=== PATIENT | female | born 1950 | race Caucasian/White ===

== ENCOUNTER → 2020-10-28 02:48 | Outpatient (CLI) | payer MEDICARE, SELFPAY ==
[2020-10-28 19:43] LABS: SARS-CoV-2 RNA PCR Negative
== END ==
PROVIDERS: PCP Internal Medicine; Visit Provider Internal Medicine Gastroenterology
DX: Z01.812 Encounter for preprocedural laboratory examination (principal); Z20.822 Contact with and (suspected) exposure to COVID-19
CPT/HCPCS: C9803; U0003; U0005

== ENCOUNTER 2020-10-31 00:15 | Day surgery (SDC) | payer MEDICARE, SELFPAY ==
[2020-10-19 12:46] VITALS: BMI 41.4
[2020-10-31 06:24] VITALS: BP 153/92; PULSE 95; RESP 17; TEMP 36.5; O2SAT 100; BMI 44.8
[2020-10-31] MEDS: LACTATED RINGERS 1,000 ML 150 ML IV CONT (06:36)
--- NOTE | 2020-10-31 07:14 | WPDANESEPPF ---
Anes - Initial Pre Proc Eval Procedure: Operation Date: 10/31/20 07:30 Proposed Procedures p Screening Colonoscopy - Luisito Holland MD Date/Time: 10/31/20 07:14 Surgeon: Luisito Holland MD Pre Op Diagnosis: neoplasm screening, family hx colon ca Patient Data Age: 70 Gender: F Height: 5 ft 5 in Weight: 122.1 kg Last Vital Signs Temp 97.7 F 10/31/20 06:24 Pulse 95 10/31/20 06:24 Resp 17 10/31/20 06:24 BP 153/92 H 10/31/20 06:24 Pulse Ox 100 10/31/20 06:24 Allergies Allergy/AdvReac Type Severity Reaction Status Date / Time codeine AdvReac Intermediate Nausea Verified 10/31/20 06:23 Home Medications Medication Instructions Recorded Confirmed Type duloxetine 60 mg capsule,delayed 60 mg PO DAILY #90 cap 05/29/20 10/31/20 Rx release pravastatin 80 mg tablet 80 mg PO DAILY #90 tablet 06/29/20 10/31/20 Rx losartan 50 mg tablet 50 mg PO DAILY #90 tablet 07/31/20 10/31/20 Rx diclofenac sodium 75 mg PO BID 10/19/20 10/31/20 History omeprazole 40 mg PO DAILY PRN 10/19/20 10/31/20 History Patient hx anesthesia problems: none Family hx anesthesia problems: none PMFSH Past Medical History Medical History (Updated 06/29/20 @ 13:56 by Yessi Sampson CMA) WALT-inhibitor cough Benign essential hypertension Body mass index (BMI) 40.0-44.9, adult Colon cancer screening DJD (degenerative joint disease), multiple sites Elevated glucose Encounter for gynecological examination Encounter for Medicare annual wellness exam Encounter to establish care FHx: colon cancer First degree AV block History of kidney stones Hx of breast cancer Hyperlipidemia Hypothyroidism (acquired) Lichen sclerosus On watermelon harvesting supervisor drug therapy LUIS on CPAP Retinal hole of left eye Surgical History Surgical History Hx of bilateral mastectomy Family History Family History Mother Family history of rheumatoid arthritis Grandparent Family history of respiratory disorder Diabetes mellitus Acute myocardial infarction Sibling Carcinoma of colon Father Family history of renal failure Social History Social History Smoking status: Never smoker Alcohol intake: current Drinks per week: 10 Alcohol use details: WINE Substance use: never Living arrangements: alone Spiritual care concerns: No Anes - Eval Final PreProcedure Day of Procedure 10/31/20 07:14 Patient weight: morbidly obese Heart: regular rate and rhythm Lungs: clear to auscultation Airway: Mallampati scale class III Neurological: alert and oriented Last oral intake: >/= 8 hours ASA classification: IV Emergent: no Anesthetic plan: proceed Anesthesia type and monitoring: general GIVS and standard monitoring Informed Consent: The patient's anesthetic plan and its attendant risks and benefits were discussed with the patient/family/POA. Questions were solicited and answers provided to the satisfaction of the patient/family/POA.
--- NOTE | 2020-10-31 07:14 | PM.HPGS ---
History of Present Illness History of Present Illness Consent: Risks, benefits, and alternatives have been discussed and questions answered. Patient agrees to proceed with procedure. Chief complaint: neoplasm screening, family hx colon ca Narrative: Disha Nguyen is a 70 year old female referred for colon cancer screening she has a family history of colon cancer Review of Systems Review of Systems: All systems reviewed & are unremarkable except as noted in HPI and below PMFSH Past Medical History Medical History WALT-inhibitor cough Benign essential hypertension Body mass index (BMI) 40.0-44.9, adult Colon cancer screening DJD (degenerative joint disease), multiple sites Elevated glucose Encounter for gynecological examination Encounter for Medicare annual wellness exam Encounter to establish care FHx: colon cancer First degree AV block History of kidney stones Hx of breast cancer Hyperlipidemia Hypothyroidism (acquired) Lichen sclerosus On terminal superintendent drug therapy LUIS on CPAP Retinal hole of left eye Surgical History Surgical History Hx of bilateral mastectomy Family History Family History Mother Family history of rheumatoid arthritis Grandparent Family history of respiratory disorder Diabetes mellitus Acute myocardial infarction Sibling Carcinoma of colon Father Family history of renal failure Social History Social History Smoking status: Never smoker Alcohol intake: current Drinks per week: 10 Alcohol use details: WINE Substance use: never Living arrangements: alone Spiritual care concerns: No Meds Home Medications and Allergies Home Medications Medication Instructions Recorded Confirmed Type duloxetine 60 mg capsule,delayed 60 mg PO DAILY #90 cap 05/29/20 10/31/20 Rx release pravastatin 80 mg tablet 80 mg PO DAILY #90 tablet 06/29/20 10/31/20 Rx losartan 50 mg tablet 50 mg PO DAILY #90 tablet 07/31/20 10/31/20 Rx diclofenac sodium 75 mg PO BID 10/19/20 10/31/20 History omeprazole 40 mg PO DAILY PRN 10/19/20 10/31/20 History Allergies Allergy/AdvReac Type Severity Reaction Status Date / Time codeine AdvReac Intermediate Nausea Verified 10/31/20 06:23 Vital Signs Vital Signs - 24 hr 10/31/20 06:24 Temperature 36.5 C Pulse Rate 95 Respiratory Rate 17 Blood Pressure 153/92 H Pulse Oximetry 100 Exam Const: General: alert Orientation/consciousness: patient oriented x3 Resp: Auscultation: clear to auscultation bilaterally Cardio: Rhythm: regular rhythm GI: GI Palp: Yes Soft to palpation and No Tenderness to palpation present (GI) Neuro: General: patient oriented x3 Assessment and Plan Assessment and plan (1) Colon cancer screening: Code(s): Z12.11 - Encounter for screening for malignant neoplasm of colon Status: Acute Assessment and Plan: Colonoscopy with possible biopsy or polypectomy or cautery or injection of substances.
[2020-10-31 07:50] VITALS: BP 107/55; PULSE 88; RESP 21; O2SAT 97
[2020-10-31 08:00] VITALS: BP 124/71; PULSE 82; RESP 21; O2SAT 99
[2020-10-31 08:10] VITALS: BP 131/71; PULSE 80; RESP 24; O2SAT 100
== END 2020-10-31 08:20 | disposition home or self-care (01) ==
PROVIDERS: PCP Internal Medicine; Visit Provider Internal Medicine Gastroenterology
PROC: 0DJD8ZZ Inspection of Lower Intestinal Tract, Via Natural or Artificial Opening Endoscopic (ICD-10-PCS; CPT 45378; principal; 2020-10-31 07:30)
DX: Z12.11 Encounter for screening for malignant neoplasm of colon (principal); K57.30 Diverticulosis of large intestine without perforation or abscess without bleeding; D12.5 Benign neoplasm of sigmoid colon; Z80.0 Family history of malignant neoplasm of digestive organs; I10 Essential (primary) hypertension; E78.5 Hyperlipidemia, unspecified; I44.0 Atrioventricular block, first degree; E03.9 Hypothyroidism, unspecified; G47.33 Obstructive sleep apnea (adult) (pediatric); Z85.3 Personal history of malignant neoplasm of breast; M89.49 Other hypertrophic osteoarthropathy, multiple sites; E66.01 Morbid (severe) obesity due to excess calories; Z68.41 Body mass index [BMI] 40.0-44.9, adult
CPT/HCPCS: 45385; 88305; C9803; J2704; J7120; U0003; U0005

== ENCOUNTER 2021-01-24 13:06 | Emergency (ER) | payer MEDICARE, SELFPAY ==
--- NOTE | ~2021-01-24 | XR_ITS ---
EXAMINATION: XR facial bones min 3V EXAM DATE: 01/24/2021 13:40 INDICATION: fall pain to left cheek, swelling. Initial encounter. TECHNIQUE: Frontal, Garcia, lateral, submentovertex projections of the facial bones. There is no pr ior study for comparison. FINDINGS: There is soft tissue swelling over the left cheek. There are no acute fractures identified. Orbits appear intact. No appreciable sinus opacity. IMPRESSION: No facial fracture suspected. Reviewed, dictated and finalized at location A.
--- NOTE | ~2021-01-24 | XR_ITS ---
XR wrist RT w scaphoid DATE: 01/24/2021 13:39 INDICATION: Fall. Right wrist pain, swelling TECHNIQUE: 4 views COMPARISON: None FINDINGS: There is an impacted distal radial metaphyseal fracture with 4 mm dorsal displacement and a pproximately 23 degrees apex anterior angulation with associated dorsal inclination of the distal rad ial articular surface. Radiocarpal alignment is preserved. No other fracture or dislocation is evident. IMPRESSION: Impacted distal radial fracture with 4 mm dorsal displacement, 23 degrees apex anterior a ngulation and associated dorsal inclination of distal radial articular surface Reviewed, dictated and finalized at location B. IMPRESSION: Impacted distal radial fracture with 4 mm dorsal displacement, 23 d egrees apex anterior angulation and associated dorsal inclination of distal rad ial articular surface
[2021-01-24 13:15] VITALS: BP 189/87; PULSE 116; RESP 16; TEMP 36.3; O2SAT 98
--- NOTE | 2021-01-24 14:00 | ED.FALL ---
HPI - Fall General Chief Complaint: Fall Stated Complaint: fall/injured face/r wrist Time Seen by Provider: 01/24/21 13:29 Source: patient, family and RN notes reviewed Mode of arrival: ambulatory Limitations: no limitations History of Present Illness HPI Narrative: Patient presents today complaining of right wrist injury and a left cheek injury after tripping and falling over her cat just prior to arrival. Denies loss of consciousness. Patient is not on any blood thinners. Denies headache, dizziness, nausea or vomiting, vision changes, neck pain. Reports tingling in her fourth and fifth finger of the right hand. She currently rates her pain 8/10 and has tried no [id number] treatment prior to arrival. MD complaint: fall Related Data Home Medications Medication Instructions Recorded Confirmed diclofenac sodium 75 mg PO BID 10/19/20 11/10/20 omeprazole 40 mg PO DAILY PRN 10/19/20 11/10/20 Allergies Allergy/AdvReac Type Severity Reaction Status Date / Time codeine AdvReac Intermediate Nausea Verified 01/24/21 15:23 Review of Systems Review of Systems: Narrative: CONSTITUTIONAL: Denies body aches, fever, chills, or sweats. EYES: Denies visual changes, redness, or discharge. ENT: Denies rhinorrhea, congestion, sore throat, or otalgia. CARDIOVASCULAR: Denies chest pain, palpitations, or edema. RESPIRATORY: Denies cough or dyspnea. GASTROINTESTINAL: Denies abdominal pain, nausea, vomiting, or diarrhea. GENITOURINARY: Denies dysuria or hematuria. SKIN: Denies rash, itching. + Swelling to left cheek MUSCULOSKELETAL: Denies back pain,or myalgia.+ Right wrist injury NEUROLOGIC: Denies headache, numbness, or weakness. + Tingling to right fourth and fifth finger PSYCH: Denies depression or anxiety. [facility] Past Medical History Medical History WALT-inhibitor cough Benign essential hypertension Body mass index (BMI) 40.0-44.9, adult Body mass index (BMI) 45.0-49.9, adult Colon cancer screening DJD (degenerative joint disease), multiple sites Elevated glucose Encounter for gynecological examination Encounter for Medicare annual wellness exam Encounter for routine adult health examination without abnormal findings Encounter to establish care Facial pain Fall FHx: colon cancer First degree AV block History of kidney stones Hx of breast cancer Hyperlipidemia Hypothyroidism (acquired) Lichen sclerosus Neck pain On group home drug therapy LUIS on CPAP Retinal hole of left eye Surgical History Surgical History Hx of bilateral mastectomy Family History Family History Mother Family history of rheumatoid arthritis Grandparent Family history of respiratory disorder Diabetes mellitus Acute myocardial infarction Sibling Carcinoma of colon Father Family history of renal failure Social History Social History Smoking status: Never smoker Alcohol intake: current Drinks per week: 10 Alcohol use details: WINE Substance use: never Spiritual care concerns: No Comments At time of signature, I have reviewed and agree with nursing past medical, surgical, social and family history unless otherwise noted. Please see nursing chart for further information. There is no relevant family history pertinent to the presenting complaint Exam Narrative: Exam Narrative: GENERAL: Well-appearing, well-nourished, and in no acute distress. HEAD: Normocephalic. + Contusion to the left cheek with ecchymosis and edema. No crepitus noted. EYES: EOMI. PERRL. No nystagmus. No redness or drainage. Conjunctivae normal. ENT: Mucous membranes pink and moist. No pain to palpation of the orbits or nasal bridge. NECK: Normal AROM. CHEST: No respiratory distress. EXTREMITIES: Right wrist
== END 2021-01-24 14:32 | disposition home or self-care (01) ==
PROVIDERS: Emergency Provider Nurse Practitioner; PCP Internal Medicine
DX: S52.501A Unspecified fracture of the lower end of right radius, initial encounter for closed fracture (principal); S00.93XA Contusion of unspecified part of head, initial encounter; W18.09XA Striking against other object with subsequent fall, initial encounter; I10 Essential (primary) hypertension; Z85.038 Personal history of other malignant neoplasm of large intestine; I44.0 Atrioventricular block, first degree; E78.5 Hyperlipidemia, unspecified; E03.9 Hypothyroidism, unspecified; L90.0 Lichen sclerosus et atrophicus; G47.33 Obstructive sleep apnea (adult) (pediatric); Z85.3 Personal history of malignant neoplasm of breast; Z90.13 Acquired absence of bilateral breasts and nipples
CPT/HCPCS: 29125; 70150; 73110; 99214; A4565; G0463

== ENCOUNTER 2021-01-24 16:14 | Outpatient (CLI) | payer MEDICARE, SELFPAY ==
--- NOTE | ~2021-01-24 | CT_ITS ---
EXAMINATION: CT facial bones wo con, CT cervical spine wo con EXAM DATE: 01/24/2021 16:53 INDICATION: Fall, facial injury. TECHNIQUE: Spiral CT of the facial bones was acquired in the axial plane. Coronal reformatted images were also reviewed. Spiral CT of the cervical spine was performed without contrast. Axial images we re reviewed. Coronal and sagittal reformatted images were also reviewed. The dose-length product (DL P) for this examination was 555.83 mGy-cm. The exposure was tailored according to patient size, and iterative reconstruction (ASIR) was used as additional dose reduction technique. There is no prior s tudy for comparison. FINDINGS: FACIAL CT: There are no displaced acute nasal bone fractures. The mandible, sinuses and orbits are i ntact. The orbits, globes and extraocular muscles are unremarkable. The visualized sinuses and ma stoid air cells are well aerated. Mandibular bony hypertrophy, bruxism. There is left cheek swelling CERVICAL CT: There is no evidence of acute cervical fracture. The odontoid process is intact. Pre-d ens space is normal. Prevertebral soft tissue is normal. There are no soft tissue abnormalities saurabh ntified. There is no disc space widening or traumatic vertebral body subluxation suspected. There i s moderate to severe lower cervical disc disease and upper cervical facet arthropathy A detailed lev el by level evaluation of spondylosis can be added as addendum if requested. IMPRESSION: 1. No acute facial or cervical fracture. 2. Left cheek swelling. Reviewed, dictated and finalized at location A. IMPRESSION: 1. No acute facial or cervical fracture. 2. Left cheek swelling.
== END 2021-01-24 16:15 | disposition home or self-care (01) ==
PROVIDERS: PCP Internal Medicine; Visit Provider Internal Medicine
DX: R51.9 Headache, unspecified (principal); M54.2 Cervicalgia; W19.XXXA Unspecified fall, initial encounter; M79.89 Other specified soft tissue disorders
CPT/HCPCS: 70150; 70486; 72125; 73110; A4565

== ENCOUNTER 2021-01-29 16:15 | Observation (INO) | payer MEDICARE, SELFPAY ==
--- NOTE | ~2021-01-29 | CT_ITS ---
EXAMINATION: CTA brain carotid EXAM DATE: 01/29/2021 18:11 INDICATION: Dizziness. Breast and colon cancer. TECHNIQUE: Noncontrast head CT. Spiral CTA of the carotid arteries was performed with intravenous i njection 100 cc of Omnipaque 350. Axial, coronal, sagittal reformatted images reviewed. Additional r eformatted images created on dedicated 3-D workstation. NASCET comparable standard used to assess th e degree of arterial stenosis. Spiral CT angiogram cerebral arteries performed with the same intrave nous injection of contrast. Source images of the brain CTA transferred to dedicated workstation for 3 -D rotational image creation. Coronal, sagittal maximum intensity pixel images also reviewed. The d ose-length product (DLP) for this examination was 1845.59 mGy-cm. The exposure was tailored accordi ng to patient size, and iterative reconstruction (ASIR) was used as additional dose reduction techniq ue. There is no prior study for comparison. FINDINGS: Medially deviated common carotid arteries bilaterally. There is no carotid bulb plaque or s tenosis. There is no carotid or vertebral basilar arterial dissection or fibromuscular dysplasia. Th ere are no cerebral artery aneurysms. There is symmetric cerebral artery arborization. The sagittal, transverse and sigmoid sinuses enhance normally, no venous sinus thrombosis. Internal cerebral veins also enhance normally. There is no acute intraparenchymal hemorrhage. No evidence of intraparenchymal brain mass lesion. N o evidence of acute infarction. There is mild periventricular and subcortical hypodensity, nonspecifi c but probably related to small vessel ischemic disease. There is mild to moderate prominence of th e sulci and ventricles related to cerebral atrophy. There is no mass effect or midline shift. Ther e is no obstructive hydrocephalus suspected. There are no extra-axial collections. Incidental Findings: Apical mosaic attenuation, could be air trapping or mild pulmonary edema. Left c heek subcutaneous region, could be small hematoma or contusion measuring 1.2 x 0.8 cm. Clinical corre lation. Advanced cervical arthropathy. IMPRESSION: 1. Age-related chronic intracranial findings. 2. Bilateral carotid bulb 0% stenosis. 3. Apical mosaic attenuation, probably air trapping or mild pulmonary edema. 4. Left cheek subcutaneous region which could be small contusion or hematoma. Reviewed, dictated and finalized at location A.
--- NOTE | 2021-01-29 16:40 | ECG_ITS ---
Measurements Intervals [place] Rate: 100 P: 5 [place]: 205 QRS: 77 QRSD: 85 T: -23 QT: 349 QTc: 452 Interpretive Statements SINUS TACHYCARDIA POSSIBLE LEFT ATRIAL ENLARGEMENT INCOMPLETE RIGHT BUNDLE BRANCH BLOCK LOW QRS VOLTAGE- DIFFUSE LEADS BORDERLINE T WAVE ABNORMALITY- INFERIOR LEADS BORDERLINE ECG Electronically Signed On 01-29-2021 16:59:23 CDT by Julius Bhatt D.O.
[2021-01-29 16:47] VITALS: BP 203/126; PULSE 100; RESP 18; TEMP 36.6; O2SAT 98
[2021-01-29 17:07] LABS: Basophils Absolute Auto 0.1 K/mm3 (0.0-0.1); Basophils Percent Auto 0.4 % (0.2-1.2); Eosinophils Absolute Auto 0.1 K/mm3 (0-0.3); Eosinophils Percent Auto 0.5 % (0-4.4); Hematocrit 45.1 % (37.0-47.0); Hemoglobin 14.2 g/dL (12.0-15.0); Immature Granulocyte Absolute 0.13 K/mm3 (0.00-0.031); Immature Granulocyte Percent A 1.1 % (0-0.5); Lymphocytes Absolute Auto 1.13 K/mm3 (0.9-3.2); Lymphocytes Percent Auto 9.4 % (18.3-44.2); Mean Corpuscular HGB Conc 31.5 g/dl (32-36); Mean Corpuscular Volume 95.1 fl (80-100); Mean Platelet Volume 9.3 fl (7.4-10.4); Monocytes Absolute Auto 0.7 K/mm3 (0.1-0.6); Monocytes Percent Auto 5.8 % (2.6-8.5); Neutrophils Percent Auto 82.8 % (45.5-73.1); Platelet Count Result 251 k/mm3 (150-375); Red Blood Count 4.74 M/mm3 (4.2-5.4); Red Cell Distribution Width 12.3 % (11.5-14.5); White Blood Count 12.1 K/mm3 (4.5-10.0)
[2021-01-29 17:16] VITALS: PULSE 103; RESP 13
[2021-01-29 17:17] VITALS: BP 176/95; PULSE 101; RESP 18
[2021-01-29 17:30] LABS: Anion Gap 15 mmol/L (8-16); Blood Urea Nitrogen 18 mg/dL (7-17); Calcium 9.2 mg/dL (8.4-10.2); Carbon Dioxide 15 mmol/L (22-30); Chloride 107 mmol/L (98-107); Estimated CRCL calculation 75 ml/min; Estimated Glomerular Filt Rate > 60; Glucose 152 mg/dL (65-110); Potassium 3.8 mmol/L (3.4-5.0); Sodium 137 mmol/L (137-145)
[2021-01-29] MEDS: MECLIZINE HCL 25 MG TABLET PO (18:17)
--- NOTE | 2021-01-29 18:34 | ED.GENADULT ---
HPI - General Adult General Chief complaint: Dizziness Stated complaint: dizzy Time Seen by Provider: 01/29/21 17:46 Source: patient and family History of Present Illness HPI narrative: Patient is a 70 y/o female complaining of severe dizziness starting 2 days ago. She describes her dizziness as a room spinning sensation. She states that her dizziness is worse with movement and better with remaining still. She has some nausea, but no vomiting. She had right wrist fracture 5 days ago and she is scheduled to have surgery in 4 days. She states that she lives by herself and she is having difficulty caring herself due to her dizziness and wrist fracture. Related Data Home Medications Medication Instructions Recorded Confirmed diclofenac sodium 75 mg PO BID 10/19/20 01/26/21 omeprazole 40 mg PO DAILY PRN 10/19/20 01/26/21 Allergies Allergy/AdvReac Type Severity Reaction Status Date / Time codeine AdvReac Intermediate Nausea Verified 01/24/21 15:23 Review of Systems Constitutional: Constitutional: Denies chills, Denies fever(s), Denies headache(s) and Denies weakness Eyes: Eyes: Denies blurry vision ENT: Denies headache(s) and Denies neck pain Cardiovascular: Cardiovascular: Denies chest pain and Denies dyspnea Respiratory: Respiratory: Denies cough and Denies dyspnea Gastrointestinal: Gastrointestinal: Denies abdominal pain, Denies diarrhea, Reports nausea and Denies vomiting Genitourinary: Genitourinary: Denies hematuria and Denies dysuria Musculoskeletal: Musculoskeletal: Denies back pain, Denies neck pain and Reports other (right wrist pain) Neurologic: Reports dizziness, Denies headache(s) and Denies weakness [facility] Past Medical History Medical History WALT-inhibitor cough Benign essential hypertension Body mass index (BMI) 40.0-44.9, adult Body mass index (BMI) 45.0-49.9, adult Colon cancer screening DJD (degenerative joint disease), multiple sites Elevated glucose Encounter for gynecological examination Encounter for Medicare annual wellness exam Encounter for routine adult health examination without abnormal findings Encounter to establish care Facial pain Fall FHx: colon cancer First degree AV block History of kidney stones Hx of breast cancer Hyperlipidemia Hypothyroidism (acquired) Lichen sclerosus Neck pain On assisted drug therapy LUIS on CPAP Retinal hole of left eye Right wrist fracture Surgical History Surgical History Hx of bilateral mastectomy Family History Family History Mother Family history of rheumatoid arthritis Grandparent Family history of respiratory disorder Diabetes mellitus Acute myocardial infarction Sibling Carcinoma of colon Father Family history of renal failure Social History Social History Smoking status: Never smoker Alcohol intake: current Drinks per week: 10 Alcohol use details: WINE Substance use: never Spiritual care concerns: No Exam Const: General: no acute distress and well developed Orientation/consciousness: oriented to person, oriented to place, oriented to time and patient oriented x3 HENMT: Head: normocephalic Ears: external ears normal General nose exam: Normal external nose present Eyes: General: appearance normal, both eyes and all related structures Conjunctivae: conjunctivae normal Neck: Neck: normal visual inspection and full ROM Chest: Chest palpation & inspection: normal inspection of the chest and no tenderness Resp: Effort & Inspection: normal respiratory effort Auscultation: clear to auscultation bilaterally Cardio: Rate: regular rate Rhythm: regular rhythm GI: GI Palp: No abdominal tenderness and Yes Soft to palpation Skin: General skin exam: normal color, turgor normal and ecchymosis (left fa
[2021-01-29] MEDS: LOSARTAN POTASSIUM 50 MG TABLET PO (19:58)
[2021-01-29] MEDS: ACETAMINOPHEN 325 MG TABLET 650 MG PO (19:58)
[2021-01-29 20:12] LABS: Vitamin D 25 Hydroxy 55.5 ng/mL
--- NOTE | 2021-01-29 21:55 | ADMGEN ---
This patient, Disha Nguyen, was admitted to 3 [facility] Surg Room 324-02 @ 2130. Patient/family oriented to hospital policies and general routines including ID bracelet, bed and alarms, visiting hours, pain management, procedures, bathroom and other care routines, personal items, smoking policy, room service/diet, and visiting hours. Information on how to activate the Rapid Response Team has been discussed. Patient/Family are encouraged to report perceived risks to care and to ask questions if they do not understand what they are told or what they should do.
[2021-01-29 22:00] VITALS: BP 176/96; PULSE 106; RESP 18; TEMP 36.6; O2SAT 94
[2021-01-29 22:06] VITALS: BMI 46.0
[2021-01-30] VITALS (13 sets, daily range): BP systolic 144–159; BP diastolic 74–101; PULSE 83–111; RESP 18–20; TEMP 36.6–36.9; O2SAT 94–98
--- NOTE | 2021-01-30 00:40 | PM.IMHP ---
H&P: HPI History of Present Illness Date/Time: 01/30/21 00:40 Chief Complaint: DIZZINESS Narrative: THIS IS A 70-YEAR-OLD FEMALE WITH PAST MEDICAL HISTORY SIGNIFICANT FOR HYPERTENSION, GERD, DYSLIPIDEMIA, DEPRESSION. PATIENT PRESENTED TO EMERGENCY ROOM DUE TO DIZZINESS RECENTLY SHE HAD A FALL MECHANICAL TO GROUND LEVEL WITH FRACTURE TO THE WRIST UNDER RIGHT-SIDED AND HEMATOMA OF THE FACE ON THE LEFT SIDE SHE WAS SEEN IN THE EMERGENCY ROOM AND A CAST WAS PLACED IN IN PLACE SHE IS SUPPOSED TO COME BACK FOR SURGERY ON FRIDAY WITH ORTHOPEDICS. SHE HAS NOT BEEN ABLE TO TAKE CARE OF HERSELF DUE TO HER DIZZINESS SHE HAS ROOM SPINNING AROUND HER SENSATION TODAY SHE WAS AT OUTPATIENT PHYSICAL THERAPY GETTING TREATMENT FOR HER VERTIGO WHEN SHE BECAME VERY DIZZY AND FEELING LIKE PASSING OUT AND WAS BROUGHT TO THE EMERGENCY. UPON ARRIVAL TO THE EMERGENCY ROOM SHE WAS FOUND TO HAVE SOME HYPERTENSION A CT OF THE HEAD DID NOT SHOW ANY ACUTE TRAUMA. PATIENT DENIES ANY SHORTNESS OF BREATH COUGH SPUTUM PRODUCTION FEVERS RIGORS CHILLS SYNCOPE BUT NEAR SYNCOPE. PATIENT STATES THE MECLIZINE HELPED HER THE NAUSEA IS ABLE TO OPEN HER EYES WITHOUT GETTING DIZZY. DECISION HAS BEEN MADE TO PLACE THE PATIENT IN OBSERVATION. Review of Systems Review of Systems: Narrative: DIZZINESS Constitutional: Constitutional: Denies chills, Denies fatigue and Denies fever(s) Eyes: Eyes: Denies change in vision ENT: Reports Normal hearing present, Denies dysphagia, Denies nasal congestion, Denies nasal discharge, Denies nasal obstruction, Reports odynophagia and Denies disequilibrium Cardiovascular: Cardiovascular: Denies edema, Denies irregular heart rhythm, Denies lightheadedness, Denies radiating jaw, neck or arm pain, Denies palpitations and Denies dyspnea on exertion Respiratory: Respiratory: Denies cough and Denies dyspnea Gastrointestinal: Gastrointestinal: Denies diarrhea, Denies nausea and Denies vomiting Genitourinary: Genitourinary: Reports no additional female genitourinary complaints Musculoskeletal: Comments: RIGHT WRIST FRACTURE Integumentary/Breasts: Skin/Breast: Reports system reviewed and no additional complaints, except as docu Neurologic: Reports system reviewed and no additional complaints, except as documented Psychiatric: Psychiatric: Reports no additional psychiatric complaints Endocrine: Endocrine: Reports no additional endocrine complaints Hematologic/Lymphatic: Hematologic/Lymphatic: Reports no additional hematologic/lymphatic complaints Allergic/Immunologic: Allergic/Immunologic: Reports no additional allergic/immunologic complaints PMFSH Past Medical History Medical History WALT-inhibitor cough Benign essential hypertension Body mass index (BMI) 40.0-44.9, adult Body mass index (BMI) 45.0-49.9, adult Colon cancer screening DJD (degenerative joint disease), multiple sites Elevated glucose Encounter for gynecological examination Encounter for Medicare annual wellness exam Encounter for routine adult health examination without abnormal findings Encounter to establish care Facial pain Fall FHx: colon cancer First degree AV block History of kidney stones Hx of breast cancer Hyperlipidemia Hypothyroidism (acquired) Lichen sclerosus Neck pain On penitentiary drug therapy LUIS on CPAP Retinal hole of left eye Right wrist fracture Surgical History Surgical History Hx of bilateral mastectomy Family History Family History (Updated 01/29/21 @ 22:08 by Macy Ruiz, RN) Mother Family history of rheumatoid arthritis Family history of renal failure Grandparent Family history of respiratory disorder Diabetes mellitus Acute myocardial infarction Sibling Carcinoma of colon Father Family history of renal failure Social History Social History Smoking status: Never smoker
[2021-01-30] MEDS: LOSARTAN POTASSIUM 50 MG TABLET PO (09:05)
[2021-01-30] MEDS: DULoxetine HCL 60 MG CAPSULE.DR PO (09:05)
[2021-01-30] MEDS: THERAPEUTIC MULTIVITAMINS/MINERALS TAB (*BKC) 1 TABLET PO (09:05)
[2021-01-30] MEDS: CHOLECALCIFEROL 1,000 UNITS TABLET 2000 UNITS PO ×2 (09:05→17:09)
[2021-01-30] MEDS: PRAVASTATIN SODIUM 20 MG TABLET BY MOUTH (09:06)
[2021-01-30] MEDS: OMEGA 3 POLYUNSAT FATTY ACIDS 1 GM CAP 2 GM PO (09:06)
[2021-01-30] MEDS: ACETAMINOPHEN 325 MG TABLET 650 MG PO ×2 (13:39→17:48)
--- NOTE | 2021-01-30 16:11 | PM.IMPN ---
Progress Note: A&P Assessment and Plan (1) Dizziness: Code(s): R42 - Dizziness and giddiness Status: Acute Assessment and Plan: Suspect BPPV. Improving. She has been to vestibular rehab x1 and had maneuvers for this Continue with outpatient vestibular rehab upon discharge. Meclizine prn Orthostatics negative (2) Distal radius fracture, right: Qualifiers: Encounter type: subsequent encounter Fracture healing: with routine healing Fracture morphology: unspecified fracture morphology Fracture type: closed Qualified Code(s): S52.501D - Unspecified fracture of the lower end of right radius, subsequent encounter for closed fracture with routine healing Code(s): S52.501A - Unspecified fracture of the lower end of right radius, initial encounter for closed fracture Status: Acute Assessment and Plan: Surgery scheduled with Dr. Hernandez on Friday 02/02 Continue supportive care Analgesics available as needed for pain Hopeful discharge tomorrow to allow her to proceed with outpatient surgery She will begin PT/OT following surgery (3) Benign essential hypertension: Code(s): I10 - Essential (primary) hypertension Status: Acute Assessment and Plan: BP reviewed and fairly well controlled. Last BP 144/74. Continue Losartan (4) Fall: Code(s): W19.XXXA - Unspecified fall, initial encounter Status: Acute Assessment and Plan: She had a mechanical fall causing wrist fracture. Not related to dizziness/BPPV. Continue fall precautions (5) LUIS on CPAP: Code(s): G47.33 - Obstructive sleep apnea (adult) (pediatric); Z99.89 - Dependence on other enabling machines and devices Status: Acute Assessment and Plan: Continue with CPAP at night. Subjective Date/time seen: 01/30/21 16:11 Interval history: date of service: 01/30/2021 Disha Nguyen is a 70-year-old female with a history hypertension, breast cancer, hypothyroidism, LUIS, and recent right wrist fracture who is seen in follow-up for vertigo. She is feeling better. She is still having few episodes that occur, mostly with ambulation. She does feel weak and is nervous about returning home to care for herself, especially without the use of her dominant hand. Her daughter is present and would like her to have an in-home brewmaster. She is feeling too weak to go home. The patient and daughter both worried that her hospitalization will prevent her from having her right wrist surgery which is scheduled for Friday, 02/02. overall, she is feeling better. denies shortness breath, cough, or chest pain. No abdominal pain, no nausea or vomiting. She is tolerating her diet. Denies urinary symptoms. Review of Systems Review of Systems: All systems reviewed & are unremarkable except as noted in HPI and below Exam Narrative: Exam Narrative: Ms. Nguyen is a well-nourished 70-year-old female who is sitting up in bed. she appears comfortable and is in NARD. Neuro: awake, alert and oriented x4, speech clear, no focal neuro deficits noted HEENMT: normocephalic, atraumatic, EOMI, sclerae anicteric, moist oral mucosa, tongue midlinet Neck: supple, no lymphadenopathy Respiratory: clear to auscultation bilaterally, nonlabored breathing Cardio: regular rate, regular rhythm with S1-S2 Abdomen: protuberant, normoactive bowel sounds, soft, nontender to palpation Extremities: right wrist in splint. Able to wiggle fingers with brisk capillary refill. BLE without edema, erythema, or tenderness to palpation, DP pulses 2+ bilaterally Skin: bruising on left face and forearm, no rashes or lesions, warm and dry Psych: appropriate mood and affect, judgment and insight intact Objective Data Vital Signs Vital Signs: Vital Signs - 24 hr 01/29/21 16:47 01/29/21 17:16 01/29/21 17:17 Temperature 97.8 F Pulse Rate 100 103 H 101 H Respiratory Rate 18 13 18 Blood Pressure 2
[2021-01-31 06:00] VITALS: BP 156/78; PULSE 104; RESP 18; TEMP 36.8; O2SAT 97
[2021-01-31] MEDS: ACETAMINOPHEN 325 MG TABLET 650 MG PO ×2 (06:46→12:38)
[2021-01-31 07:09] LABS: Hemoglobin 13.2 g/dL (12.0-15.0); Mean Corpuscular HGB Conc 31.4 g/dl (32-36); Mean Corpuscular Hemoglobin 29.9 pg (26-34); Mean Platelet Volume 9.3 fl (7.4-10.4); Platelet Count Result 259 k/mm3 (150-375); Red Blood Count 4.42 M/mm3 (4.2-5.4); Red Cell Distribution Width 12.7 % (11.5-14.5); White Blood Count 6.5 K/mm3 (4.5-10.0)
[2021-01-31] MEDS: PRAVASTATIN SODIUM 20 MG TABLET BY MOUTH (09:17)
[2021-01-31] MEDS: CHOLECALCIFEROL 1,000 UNITS TABLET 2000 UNITS PO (09:17)
[2021-01-31] MEDS: DULoxetine HCL 60 MG CAPSULE.DR PO (09:18)
[2021-01-31] MEDS: LOSARTAN POTASSIUM 50 MG TABLET PO (09:18)
[2021-01-31 14:00] VITALS: BP 141/81; PULSE 101; RESP 20; TEMP 36.8; O2SAT 98
--- NOTE | 2021-01-31 15:06 | PM.DS ---
DS: Admitting Diagnosis Admitting Diagnosis Admitting Diagnosis: dizziness DS: Discharge Diagnosis Discharge Diagnosis (1) Dizziness: Code(s): R42 - Dizziness and giddiness Status: Acute Assessment and Plan: Presented with complaints of dizziness ongoing for 2 days. She had been to vestibular rehab x1 for suspected BPPV. she had vestibular maneuvers completed reports that she had a reaction to it and became more dizzy. Discussed that it is not uncommon to feel more dizzy following the first encounter and she should continue to proceed with vestibular rehab. Orthostatics negative head/neck CTA without acute findings She had improvement with meclizine and can continue as an outpatient Fall precautions discussed (2) Distal radius fracture, right: Qualifiers: Encounter type: subsequent encounter Fracture healing: with routine healing Fracture morphology: unspecified fracture morphology Fracture type: closed Qualified Code(s): S52.501D - Unspecified fracture of the lower end of right radius, subsequent encounter for closed fracture with routine healing Code(s): S52.501A - Unspecified fracture of the lower end of right radius, initial encounter for closed fracture Status: Acute Assessment and Plan: secondary to mechanical fall occurred on 01/24/2021. previously evaluated in the ED 1 week prior Surgery scheduled with Dr. Hernandez on Friday 02/02 Supportive care She will begin PT/OT following surgery (3) Benign essential hypertension: Code(s): I10 - Essential (primary) hypertension Status: Acute Assessment and Plan: BP reviewed and was fairly well controlled. Continue Losartan (4) Fall: Code(s): W19.XXXA - Unspecified fall, initial encounter Status: Acute Assessment and Plan: She had a mechanical fall causing wrist fracture. Not related to dizziness/BPPV. Fall precautions (5) LUIS on CPAP: Code(s): G47.33 - Obstructive sleep apnea (adult) (pediatric); Z99.89 - Dependence on other enabling machines and devices Status: Acute Assessment and Plan: Continue with CPAP at night. DS: Summary Hospital Course Hospital Course: date of admission: 01/29/2021 date of discharge: 01/31/2021 Disha Nguyen is a 70-year-old female with a history hypertension, breast cancer, hypothyroidism, LUIS, and recent right wrist fracture who presented to the emergency department on 01/29/2021 with complaints of dizziness ongoing for 2 days. Upon presentation to the emergency department, her blood pressure was elevated at 170 6/95, pulse 101, additional vital signs stable, WBC 12.1, additional CBC and BMP unremarkable, and head/neck CTA with chronic age related findings and 0% stenosis of bilateral carotid bulbs. She was admitted to the hospitalist service for further evaluation and management. Please see above for further details. Her dizziness was likely related to BPPV and initiation of vestibular rehab. She had symptomatic improvement and requested discharge home. Given her overall improvement, she was determined to no longer require inpatient care and was felt to be stable for discharge. We discussed worrisome signs and symptoms for which to return and she was educated on her medications. She should continue with outpatient vestibular rehab. She was discharged in hemodynamically stable condition on 01/31/2021. Status at Discharge Functional status at discharge: uses cane/walker Overall status at discharge: patient is progressing back to baseline Time Spent with Patient Time attestation: Total time spent providing and/or coordinating discharge services: 45 minutes Time spent: Greater than 30 minutes Exam Narrative: Exam Narrative: Ms. Nguyen is a well-nourished 70-year-old female who is sitting in a chair by the bedside. She appears comfortable and is in NARD. Neuro: awake, alert and oriented
== END 2021-01-31 15:40 | disposition home or self-care (01) ==
LOC: ANHED 20:36 → ANH3MEDSUR 20:41
PROVIDERS: Physician Assistant; Admitting Provider Internal Medicine; Emergency Provider Emergency Medicine; PCP Internal Medicine; Visit Provider Internal Medicine
DX: R42 Dizziness and giddiness (principal); I10 Essential (primary) hypertension; E78.5 Hyperlipidemia, unspecified; E03.9 Hypothyroidism, unspecified; F32.9 Major depressive disorder, single episode, unspecified; G47.33 Obstructive sleep apnea (adult) (pediatric); K21.9 Gastro-esophageal reflux disease without esophagitis; S52.501D Unspecified fracture of the lower end of right radius, subsequent encounter for closed fracture with routine healing; W19.XXXD Unspecified fall, subsequent encounter; Z85.3 Personal history of malignant neoplasm of breast
CPT/HCPCS: 36415; 70496; 70498; 80048; 82306; 85025; 85027; 93005; 97110; 97161; 97165; 97535; 99285; A9270; G0378; Q9967

== ENCOUNTER 2021-02-02 01:42 | Day surgery (SDC) | payer MEDICARE, SELFPAY ==
[2021-01-30 16:08] VITALS: BMI 44.9
--- NOTE | 2021-02-01 10:57 | PM.IMHP ---
H&P: HPI History of Present Illness Date/Time: 02/01/21 10:57 70-year-old female who presents today for ORIF of right distal radius fracture. She fell on 01/24/2021. She tripped over her cat landing hard on the outstretched right hand. She had immediate pain in the wrist she went to the emergency room she was found have a markedly dorsally impacted right distal radial metaphyseal fracture with significant dorsal comminution. She was placed into a splint. She was seen by on 01/26 in the office. He reviewed x-rays. Given the significant angulation and dorsal comminution he has recommended ORIF of the right distal radius. Patient presents today for that. <FRANCOIS Villa - Last Filed: 02/01/21 11:06> Chief Complaint: right distal radius fracture <FRANCOIS Villa - Last Filed: 02/01/21 11:06> Review of Systems Review of Systems: All systems reviewed & are unremarkable except as noted in HPI and below <FRANCOIS Villa - Last Filed: 02/01/21 11:06> [facility] Past Medical History Medical History: Medical History WALT-inhibitor cough Benign essential hypertension Body mass index (BMI) 40.0-44.9, adult Body mass index (BMI) 45.0-49.9, adult Colon cancer screening DJD (degenerative joint disease), multiple sites Elevated glucose Encounter for gynecological examination Encounter for Medicare annual wellness exam Encounter for routine adult health examination without abnormal findings Encounter to establish care Facial pain Fall FHx: colon cancer First degree AV block History of kidney stones Hx of breast cancer Hyperlipidemia Hypothyroidism (acquired) Lichen sclerosus Neck pain On extermination supervisor drug therapy LUIS on CPAP Retinal hole of left eye Right wrist fracture <FRANCOIS Villa - Last Filed: 02/01/21 11:06> Surgical History Surgical History: Surgical History Hx of bilateral mastectomy <FRANCOIS Villa - Last Filed: 02/01/21 11:06> Family History Family History: Family History Mother Family history of rheumatoid arthritis Family history of renal failure Grandparent Family history of respiratory disorder Diabetes mellitus Acute myocardial infarction Sibling Carcinoma of colon Father Family history of renal failure <FRANCOIS Villa - Last Filed: 02/01/21 11:06> Social History Social History: Social History Smoking status: Never smoker Second hand tobacco smoke exposure: Yes Alcohol intake: current Drinks per week: 2 Alcohol use details: WINE Substance use: never Substance use type: does not use Living arrangements: alone Gender identity (if verbalized by the patient): Female Spiritual care concerns: No <FRANCOIS Villa - Last Filed: 02/01/21 11:06> Meds Home Medications and Allergies Home medications: Home Medications Medication Instructions Recorded Confirmed Type losartan 50 mg tablet 50 mg PO DAILY #90 tablet 07/31/20 02/02/21 Rx omeprazole 40 mg PO DAILY PRN 10/19/20 02/02/21 History Centrum Silver Women 1 tablet PO DAILY 01/29/21 02/02/21 History clobetasol See Rx Instructions .ROUTE .COMPLEX 01/29/21 02/02/21 History qllum-1r-[id number]-epa-fish oil-D3 [Fish 2 cap PO BID 01/29/21 02/02/21 History Oil-Vit D3] duloxetine 60 mg PO DAILY 01/30/21 02/02/21 History ondansetron 8 mg PO PRN PRN 01/30/21 02/02/21 History pravastatin 80 mg PO DAILY 01/30/21 02/02/21 History meclizine 25 mg PO TID PRN #20 tablet 01/31/21 02/02/21 Rx acetaminophen [Tylenol] 650 mg PO Q4H #90 tablet 02/02/21 Rx aspirin [Aspirin Childrens] 81 mg PO .Q12 #90 tablet 02/02/21 Rx cephalexin 500 mg PO Q6H #4 cap 02/02/21 Rx oxycodone 2.5 mg PO Q4H PRN #25 tablet 02/02/21 Rx polyethylene glycol 3350 [Miralax] 17 gm PO DAILY #30
[2021-02-02] VITALS (12 sets, daily range): BP systolic 156–189; BP diastolic 79–97; PULSE 85–103; RESP 11–20; TEMP 36.7–37.3; O2SAT 92–100
--- NOTE | ~2021-02-02 | XR_ITS ---
EXAMINATION: XR surgery orthopedic DATE: 02/02/2021 14:33 INDICATION: ORIF right wrist fracture. TECHNIQUE: 5 fluoroscopic spot images of the right wrist were obtained during procedure performed by Dr. Hernandez. Radiologist was not present for the imaging or procedure. The amount of fluoroscopy time used during this procedure was 2.2 minutes. COMPARISON: None. FINDINGS: Open reduction and internal fixation of the previous noted comminuted distal right radial fracture wi th volar T plate and screw fixation. The alignment appears near-anatomic. No evident involvement of t he distal articular surface. IMPRESSION: 1. Near-anatomic alignment post open reduction and internal fixation of a mildly comminuted extra art icular fracture of the distal right radius. Reviewed, dictated and finalized at location A. IMPRESSION: 1. Near-anatomic alignment post open reduction and internal fixation of a mildl y comminuted extra articular fracture of the distal right radius.
--- NOTE | 2021-02-02 10:39 | WPDANESEPPF ---
Anes - Initial Pre Proc Eval Procedure: Operation Date: 02/02/21 12:00 Proposed Procedures p Open Reduction Internal Fixation Right Distal Radius with Deputy Plate - Javed Hernandez MD Date/Time: 02/02/21 10:39 Surgeon: Javed Hernandez MD Pre Op Diagnosis: right distal radius fx Patient Data Age: 70 Gender: F Height: 1.65 m Weight: 124.5 kg Allergies Allergy/AdvReac Type Severity Reaction Status Date / Time codeine AdvReac Intermediate Nausea Verified 01/30/21 15:59 Home Medications Medication Instructions Recorded Confirmed Type losartan 50 mg tablet 50 mg PO DAILY #90 tablet 07/31/20 02/02/21 Rx omeprazole 40 mg PO DAILY PRN 10/19/20 02/02/21 History Centrum Silver Women 1 tablet PO DAILY 01/29/21 02/02/21 History clobetasol See Rx Instructions .ROUTE .COMPLEX 01/29/21 02/02/21 History bxzjz-6h-vuw-epa-fish oil-D3 [Fish 2 cap PO BID 01/29/21 02/02/21 History Oil-Vit D3] duloxetine 60 mg PO DAILY 01/30/21 02/02/21 History ondansetron 8 mg PO PRN PRN 01/30/21 02/02/21 History pravastatin 80 mg PO DAILY 01/30/21 02/02/21 History meclizine 25 mg PO TID PRN #20 tablet 01/31/21 02/02/21 Rx Patient hx anesthesia problems: none Family hx anesthesia problems: none PMFSH Past Medical History Medical History WALT-inhibitor cough Benign essential hypertension Body mass index (BMI) 40.0-44.9, adult Body mass index (BMI) 45.0-49.9, adult Colon cancer screening DJD (degenerative joint disease), multiple sites Elevated glucose Encounter for gynecological examination Encounter for Medicare annual wellness exam Encounter for routine adult health examination without abnormal findings Encounter to establish care Facial pain Fall FHx: colon cancer First degree AV block History of kidney stones Hx of breast cancer Hyperlipidemia Hypothyroidism (acquired) Lichen sclerosus Neck pain On medical terminologist drug therapy LUIS on CPAP Retinal hole of left eye Right wrist fracture Surgical History Surgical History Hx of bilateral mastectomy Family History Family History Mother Family history of rheumatoid arthritis Family history of renal failure Grandparent Family history of respiratory disorder Diabetes mellitus Acute myocardial infarction Sibling Carcinoma of colon Father Family history of renal failure Social History Social History Smoking status: Never smoker Second hand tobacco smoke exposure: Yes Alcohol intake: current Drinks per week: 2 Alcohol use details: WINE Substance use: never Substance use type: does not use Living arrangements: alone Gender identity (if verbalized by the patient): Female Spiritual care concerns: No Anes - Eval Final PreProcedure Day of Procedure 02/02/21 10:39 Patient weight: morbidly obese Heart: regular rate and rhythm Lungs: clear to auscultation Airway: Mallampati scale class II and special considerations poor opening Neurological: alert and oriented Last oral intake: >/= 8 hours ASA classification: III Emergent: no Anesthetic plan: proceed Anesthesia type and monitoring: general ETT and standard monitoring Informed Consent: The patient's anesthetic plan and its attendant risks and benefits were discussed with the patient/family/POA. Questions were solicited and answers provided to the satisfaction of the patient/family/POA.
[2021-02-02] MEDS: LACTATED RINGERS 1,000 ML 30 ML IV CONT ×2 (10:40→14:59)
[2021-02-02] MEDS: KETOROLAC 15 MG/ML VIAL (*BKC) IV PUSH ×2 (10:57→15:42)
[2021-02-02] MEDS: ACETAMINOPHEN 500 MG TABLET 1000 MG PO (10:59)
--- NOTE | 2021-02-02 11:35 | SUR.PREOP ---
[id number]-[id number] WITH DR. LUNA RE: REMOVING SPLINT FOR SHAVE/SCRUB, WILL REMAIN IN PLACE AND WILL BE DONE IN SURGERY. VERIFIED TORADOL-DOSE TO BE GIVEN.
--- NOTE | 2021-02-02 12:29 | WPDHPUPDATE1 ---
History and Physical Update Update Date/Time: 02/02/21 12:29 History and Physical has been reviewed, including an updated exam of the patient. There are NO changes in the patient's condition. Risks, benefits, and alternatives have been discussed and questions answered. Patient agrees to proceed with procedure.
[2021-02-02] MEDS: ceFAZolin 3 GM/D5W 100 ML 100 ML IVPB (12:38)
[2021-02-02] MEDS: fentaNYL CITRATE INJ (*CRX) 100 MCG/2 ML VIAL 25 MCG IV PUSH ×8 (15:05→15:52)
--- NOTE | 2021-02-02 15:26 | P.OP_ITS ---
Procedure Note - Detailed Date of Procedure 02/02/21 Pre-op Diagnosis right distal radius fx Post-op Diagnosis same Procedure Performed open reduction internal fixation right distal radius fracture with innovation volar locking plate Surgeon Javed Hernandez MD [employer] Anesthesia general Indications severe displacement Findings same Description of Procedure patient was brought the operating room and general anesthesia was administered the right arm prepped draped usual fashion. She received 3 g of Ancef and weight based vancomycin preoperatively. Longitudinal traction was applied to the hand initially with 13 lb and a 3-1/2 inch longitudinal incision was made over the flexor carpi radialis tendon. At the distal end of the incision she had a crossing branch the palmar branch of the radial artery that crossed over the FCR about 1/2 cm proximal to the flexor crease of the wrist which was a little bit unusual. We mobilized it and went underneath it preserved during the procedure. The approach through the FCR tendon sheath was performed and the flexor pollicis longus retracted ulnarly. Pronator quadratus longitudinally incised along its radial border elevated off the volar aspect of the distal radius. The fracture required additional traction 20 lb and use of a [place] elevator to mobilize the distal fragment from is dorsally displaced position. With combination of this mobilization and downward pressure on the distal radial shaft this affected satisfactory reduction. A innovation volar locking plate with the narrow head 6 pins and 3 cortical screw holes was position properly stabilized with the guidewire and a single cortical screw placed in the oval hole in the plate manipulated until it was in perfect position and the oval hole screw tightened and a guide pin was inserted into the distal fragment after reduction and this rested 2 mm proximal the subchondral bone line in appropriate position. We then placed 6 smooth pegs in the 6 distal peg holes measuring each 1 to be 2 mm short of the metaphyseal cortex dorsally. The traction was relaxed and the oval screw loosened allowing fracture to settle into position and avoid distraction this was tightened 2 additional cortical screws were placed and we changed out the oval screw hole which was about a mm too long. The wound was thoroughly irrigated with antibiotic solution. Tourniquet released. Hemostasis was achieved. Skin closed with 3 0 subcutaneous Vicryl and glue EBL 25 cc. There were no complications. She was transferred postop recovery room good condition. She did not receive an interscalene block because of her higher risk for apnea due to her obesity. Implants innovation volar locking plate Estimated Blood Loss 25 Tourniquet Time 87 Drains No Packing No Pathology none sent Complications No immediate complications Condition stable Disposition PACU
[2021-02-02] MEDS: HYDROmorphone HCL INJ (*CRX) 1 MG/ML SYR 0.25 MG IV PUSH ×4 (16:15→16:41)
[2021-02-02] MEDS: ONDANSETRON INJ 4 MG/2 ML VIAL IV PUSH (16:23)
[2021-02-02] MEDS: SCOPOLAMINE 1.5 MG PATCH TRANSDERM (17:22)
[2021-02-02] MEDS: oxyCODONE HCL (*CRX) 5 MG TAB IR PO (17:28)
[2021-02-02] MEDS: HALOPERIDOL LACTATE 5 MG/ML VIAL 1 MG IV PUSH (17:29)
--- NOTE | 2021-02-02 18:16 | SUR.PHASEII ---
DR. ZARAGOZA CALLED RE: PERSISTENT PAIN AND NAUSEA. MEDS ORDERED AND GIVEN.
--- NOTE | 2021-02-02 18:16 | SUR.PHASEII ---
PATIENT STATED SHE FELT MUCH BETTER; MINIMAL NAUSEA AND DECREASED PAIN TO 5/10 AND STATED SHE WAS READY TO GO HOME. DR. ZARAGOZA CAME TO SEE PT. RIGHT ARM PLACED IN A SLING.
== END 2021-02-02 18:00 | disposition home or self-care (01) ==
PROVIDERS: PCP Internal Medicine; Visit Provider Orthopaedic Surgery
PROC: (CPT 25575; principal; 2021-02-02 12:00)
DX: S52.501A Unspecified fracture of the lower end of right radius, initial encounter for closed fracture (principal); W01.0XXA Fall on same level from slipping, tripping and stumbling without subsequent striking against object, initial encounter; I10 Essential (primary) hypertension; E78.5 Hyperlipidemia, unspecified; E03.9 Hypothyroidism, unspecified; G47.33 Obstructive sleep apnea (adult) (pediatric); E66.01 Morbid (severe) obesity due to excess calories; Z68.42 Body mass index [BMI] 45.0-49.9, adult
CPT/HCPCS: 25608; A9270; C1713; J0131; J0690; J1100; J1170; J1630; J1885; J2405; J2704; J3010; J3370; J7120

== ENCOUNTER 2021-09-20 12:00 | Outpatient (CLI) | payer MEDICARE, SELFPAY ==
--- NOTE | ~2021-09-20 | XR_ITS ---
EXAMINATION: XR chest 2V EXAM DATE: 09/20/2021 12:17 INDICATION: R06.00 - Dyspnea, unspecified . TECHNIQUE: Frontal and lateral projections of the chest obtained and reviewed. There is no prior vanita dy for comparison. FINDINGS: The lungs are clear. There are no pleural effusions. The cardiomediastinal silhouette is within normal limits. There is no pneumothorax suspected. The bones and soft tissues are unremarkab le. IMPRESSION: No acute cardiopulmonary findings. Reviewed, dictated and finalized at location A. NICS SYSTEMS INTEGRATION SPECIALIST
== END 2021-09-20 12:01 | disposition home or self-care (01) ==
LOC: ANHIMG 12:04
PROVIDERS: PCP Internal Medicine; Visit Provider Internal Medicine
DX: R06.00 Dyspnea, unspecified (principal)
CPT/HCPCS: 71046

== ENCOUNTER → 2022-02-28 15:53 | Outpatient (CLI) | payer MEDICARE, SELFPAY ==
--- NOTE | ~2022-02-28 | DEXA_ITS ---
Bone Density Report Name: CORBY FENG Age: 71 Sex: Female Ethnicity: White Date of : 1950 Indication: postmenopausal; screening for osteoporosis; prior fracture; cancer; Referring Provider: GLORIA RENAE Study: Bone densitometry was performed. Exam Date: February 28, 2022 Accession number: [id number] Bone Density: Region BMD T-score Z-score Classification AP Spine (L1-L4) 1.234 1.7 3.9 Normal Femoral Neck (Left) 0.953 0.9 2.8 Normal Total Hip (Left) 1.128 1.5 3.1 Normal Femoral Neck (Right) 0.931 0.7 2.6 Normal Total Hip (Right) 1.165 1.8 3.4 Normal Total Hip Mean 1.147 1.7 3.3 Normal World Health Organization criteria for BMD impression classify patients as: Normal (T-score at or above -1.0), Osteopenia (T-score between -1.0 and -2.5), or Osteoporosis (T-score at or below -2.5). 10-year Fracture Risk: FRAX not reported because: All T-scores for Spine Total, Hip Total, Femoral Neck at or above -1.0 Previous Exams: Region Exam Age BMD T-score BMD Change BMD Change Date g/cm2 vs Baseline vs Previous AP Spine(L1-L4) 02/28/2022 71 1.234 1.7 -0.103 -0.034* 10/13/2014 64 1.269 2.0 -0.069 -0.069 10/24/2008 58 1.338 2.6 Total Hip(Left) 02/28/2022 71 1.128 1.5 -0.075 -0.037* 10/13/2014 64 1.165 1.8 -0.038 -0.038 10/24/2008 58 1.203 2.1 Total Hip(Right) 02/28/2022 71 1.165 1.8 -0.036 -0.071* 10/13/2014 64 1.235 2.4 0.035 0.035 10/24/2008 58 1.200 2.1 *Denotes significance at 95% confidence level, LSC for AP Spine = 0.022 g/cm2, LSC for Total Hip = 0.027 g/cm2 Clinical Information Provided by Patient: Has had a low trauma fracture Has used the following medications: Calcium Has the following medical conditions: Cancer Patient maximum height was 65 Menopause Age: 51 No regular weight bearing exercise Drinks caffeinated beverages Onset of menses at age 11 Number of children 2 Impression: The patient has normal bone mass. The patient has risk factors, including: previous fracture. The BMD for the AP Spine(L1-L4) decreased, changing by -0.034 since the last DXA exam. The BMD for the Total Hip(Left) decreased, changing by -0.037 since the last DXA exam. The BMD for the Total Hip(Right) decreased, changing by -0.071 since the last DXA exam. Discussion: LOW RISK OF FRACTURE; BONE DENSITY IS
== END ==
PROVIDERS: PCP Internal Medicine; Visit Provider Internal Medicine
DX: Z78.0 Asymptomatic menopausal state (principal)
CPT/HCPCS: 77080

== ENCOUNTER → 2022-10-10 10:19 | Outpatient (CLI) | payer MEDICARE, SELFPAY ==
--- NOTE | ~2022-10-10 | CT_ITS ---
Non-contrast CT scan of the Abdomen and Pelvis Clinical indication: Stones, abnormal urinalysis Technique: 2.5 mm axial scans were obtained through the abdomen and pelvis without intravenous or or al contrast. Dose reduction technique was used on this scan by utilizing automated exposure control a nd iterative reconstruction technique. The dose-length product (DLP) was 1165.74 mGy-cm. COMPARISON: 01/18/2014 Findings: Images through the lung bases reveal probable atelectatic changes/scarring, less likely sm all airways infectious process, the right lung base. Nonobstructing right renal stones measuring up to 11 mm in diameter. No ureteral stone or hydronephro sis on either side. No left renal stone identified. Multiple circumscribed hypodense hepatic masses are similar to prior exam, likely multiple cysts or p ossibly hemangiomas. The spleen, pancreas, gallbladder, and adrenals appear normal. There is no aort ic aneurysm. There is no evidence of bowel obstruction. There is haziness in the central mesentery with shotty lym ph nodes present, consistent with mesenteric panniculitis. Images through the pelvis were performed. There is no evidence of ascites or lymphadenopathy. Urinary bladder unremarkable. No pelvic mass seen. Impression: Mesenteric panniculitis, as detailed above. Nonobstructing right nephrolithiasis, as detailed above. Reviewed, dictated and finalized at [facility]. Impression: Mesenteric panniculitis, as detailed above. Nonobstructing right nephrolithiasis, as detailed above.
== END ==
PROVIDERS: PCP Internal Medicine; Visit Provider Internal Medicine
DX: R71.8 Other abnormality of red blood cells (principal); R82.90 Unspecified abnormal findings in urine; R93.5 Abnormal findings on diagnostic imaging of other abdominal regions, including retroperitoneum; N20.0 Calculus of kidney; K65.4 Sclerosing mesenteritis
CPT/HCPCS: 74176

== ENCOUNTER 2022-10-25 12:16 | Outpatient (CLI) | payer MEDICARE, SELFPAY ==
--- NOTE | ~2022-10-25 | XR_ITS ---
XR abdomen/kub 1V 10/25/2022 12:41 INDICATION: Right renal stone TECHNIQUE: KUB COMPARISON: None FINDINGS: Bowel gas pattern is normal. Colonic fecal loading and bowel gas limiting evaluation for re nal stones. No definite renal calcifications. There is no evidence of free air, mass, organomegaly, a scites or obstruction. No abnormal calculi are seen. The bones appear intact. IMPRESSION: 1: No acute abdominal abnormality identified. Reviewed, dictated and finalized at location B.
== END 2022-10-25 12:17 | disposition home or self-care (01) ==
PROVIDERS: PCP Internal Medicine; Visit Provider Nurse Practitioner Adult Health
DX: N20.0 Calculus of kidney (principal)
CPT/HCPCS: 74018

== ENCOUNTER 2023-05-06 10:07 | Outpatient (CLI) | payer MEDICARE, SELFPAY ==
--- NOTE | ~2023-05-06 | XR_ITS ---
EXAMINATION: XR abdomen/kub 1V DATE: 05/06/2023 10:23 INDICATION: Right renal stone. TECHNIQUE: A supine view of the abdomen on 3 radiographs was obtained. COMPARISON: CT abdomen and pelvis 10/10/2022, abdomen radiographs 10/25/2022 FINDINGS: There are no dilated loops of bowel. There is a small volume of stool in the colon. The kid neys are obscured by bowel. There are phleboliths in the pelvis. IMPRESSION: 1. No visible urolithiasis. Reviewed, dictated and finalized at location E. IMPRESSION: 1. No visible urolithiasis.
== END 2023-05-06 10:08 | disposition home or self-care (01) ==
PROVIDERS: PCP Internal Medicine; Visit Provider Nurse Practitioner Adult Health
DX: N20.0 Calculus of kidney (principal)
CPT/HCPCS: 74018

== ENCOUNTER 2023-11-17 10:56 | Outpatient (CLI) | payer MEDICARE, SELFPAY ==
--- NOTE | ~2023-11-17 | XR_ITS ---
Right Shoulder Technique: AP and scapular Y and axillary views were obtained. Clinical History: Pain Findings: No fracture or dislocation is seen. Osseous alignment is anatomic. There is mild degenerati ve change of the glenohumeral and acromioclavicular joints.. Soft tissues are unremarkable. Impression: Mild degenerative change, as above. Reviewed, dictated and finalized at location . Impression: Mild degenerative change, as above.
== END 2023-11-17 10:57 | disposition home or self-care (01) ==
LOC: ANHIMG 10:59
PROVIDERS: PCP Internal Medicine; Visit Provider Internal Medicine
DX: M19.011 Primary osteoarthritis, right shoulder (principal)
CPT/HCPCS: 73030

== ENCOUNTER 2024-04-01 19:44 | Observation (INO) | payer MEDICARE, SELFPAY ==
--- NOTE | ~2024-04-01 | XR_ITS ---
EXAMINATION: XR retrograde pyelo w/stent RT DATE: 04/02/2024 13:59 INDICATION: Right ureteral stone. TECHNIQUE: 5 intraoperative fluoroscopic views of the abdomen and pelvis were obtained. I was not pre sent. Fluoroscopy exposure time was 23 seconds. COMPARISON: CT abdomen and pelvis 04/01/2024 FINDINGS: The right-sided retrograde pyelogram demonstrates hydronephrosis. The final images demonstr ate a right internal ureteral stent in expected position. IMPRESSION: 1. Right internal ureteral stent in expected position. Reviewed, dictated and finalized at location A.
--- NOTE | ~2024-04-01 | XR_ITS ---
EXAMINATION: XR abdomen/kub 1V DATE: 04/02/2024 08:33 INDICATION: Right UPJ stone TECHNIQUE: A supine view of the abdomen on 2 radiographs was obtained. COMPARISON: CT dated 04/01/2024 FINDINGS: There are couple potential correlates for the right renal stone previously at the uteropelvic junctio n, one of which projects over the right 12th rib and the second slightly more caudal projecting later al to the right transverse process of L2. Specificity is decreased by the large moderate stool in the superimposed colon and likely low density stone relative to multiple smaller phleboliths seen in the pelvis. The cluster of stones previously seen in upper pole calyx of the right kidney are also unabl e to be clearly distinguished. No dilated loops of bowel to suggest obstruction. Elevation the right hemidiaphragm. Mild lumbar levocurvature with severe spondylosis. There is also moderate bilateral sa croiliac osteoarthritis. IMPRESSION: 1. A couple possible correlates identified for the previously noted stone at the right ureteropelvic junction. Sensitivity and specificity is decreased by relatively low density stones and large amount of stool in the superimposed colon. Reviewed, dictated and finalized at location B. IMPRESSION: 1. A couple possible correlates identified for the previously noted stone at th e right ureteropelvic junction. Sensitivity and specificity is decreased by rel atively low density stones and large amount of stool in the superimposed colon.
--- NOTE | ~2024-04-01 | CT_ITS ---
CT abdomen pelvis wo con Ordering provider: Hubert Bernal MD History: 74 years Female with . right flank pain . Comparison: October 10, 2022 Technique: CT abdomen and pelvis without IV and without oral contrast. Automated exposure control and iterative reconstruction technique were employed. The dose-length product was 1569.90 mGy-cm. Findings: Bilateral breast implants. VISUALIZED LOWER CHEST: Nodule in the left lung base measuring 7 mm. 6 months follow-up advised. Depe ndent atelectatic changes. UPPER ABDOMINAL ORGANS: Liver: Multiple hypodensities in the liver unchanged from previous examination most likely cysts. Gallbladder: Normal. Spleen: Hypodensity in the posterior aspect unchanged. Stomach/duodenum: Normal. Pancreas: Normal. Adrenals: Normal. Kidneys: Multiple stones seen in the right kidney upper pole. Hydronephrotic changes seen in the righ t kidney with a stone in the ureteropelvic junction measuring 1 cm. Right perinephric fat stranding w ith fluid is seen. The left kidney is normal. PELVIC ORGANS: The bladder is underfilled. BOWEL AND MESENTERY: Colon: Mild sigmoid diverticulosis without diverticulitis. No evidence of appendicitis. Small Bowel: Normal. No obstruction. Peritoneum/mesentery: No free air or free fluid. No mesenteric lymphadenopathy. Panniculitis is seen in the root of the mesentery. No change from previous examination. RETROPERITONEUM: Normal aorta. Multiple paraaortic 4 lymph nodes the largest measuring 2.2 cm. MUSCULOSKELETAL: Superficial soft tissues: The superficial soft tissues are normal. Bones: Age appropriate degenerative changes of the spine. Bilateral sacroiliitis. IMPRESSION: 1. Stone in the right pelviureteric junction with hydronephrotic changes. Multiple stones in the rig ht kidney upper pole. 2. Panniculitis unchanged from previous examination. 3. Multiple hepatic cysts unchanged from previous examination. 4. Multiple para-aortic lymph nodes with the largest measuring 2.2 cm. 5. Left basal nodule measuring 6 mm. 6 months follow-up CT is advised. Reviewed, dictated and finalized at location A. IMPRESSION: 1. Stone in the right pelviureteric junction with hydronephrotic changes. Mult iple stones in the right kidney upper pole. 2. Panniculitis unchanged from previous examination. 3. Multiple hepatic cysts unchanged from previous examination. 4. Multiple para-aortic lymph nodes with the largest measuring 2.2 cm. 5. Left basal nodule measuring 6 mm. 6 months follow-up CT is advised.
[2024-04-01 20:05] VITALS: BP 205/110; PULSE 122; RESP 20; TEMP 36.5; O2SAT 94
--- NOTE | 2024-04-01 20:18 | ECG_ITS ---
Test Date: 2024-04-01 20:20:56 Measurements Intervals [place] Rate: 121 P: 0 NH: 0 QRS: -28 QRSD: 85 T: 149 QT: 343 QTc: 488 Interpretive Statements ATRIAL FLUTTER/TACHYCARDIA WITH RAPID VENTRICULAR RESPONSE LOW QRS VOLTAGE IN PRECORDIAL LEADS POSSIBLE RIGHT VENTRICULAR CONDUCTION DELAY CANNOT R/O SEPTAL INFARCT, AGE INDETERMINATE ST-T WAVE ABNORMALITY IN HIGH LATERAL LEADS- CONSIDER ISCHEMIA BASELINE ARTIFACT- I, II, III, AVR, AVL, V1-V2 ABNORMAL ECG No previous ECG available for comparison Electronically Signed On 04-02-2024 06:44:53 CDT by Julius Bhatt D.O.
[2024-04-01 20:35] LABS: Basophils Absolute Auto 0.1 K/mm3 (0.0-0.1); Basophils Percent Auto 0.5 % (0.2-1.2); Eosinophils Absolute Auto 0.2 K/mm3 (0-0.3); Eosinophils Percent Auto 2.3 % (0-4.4); Hematocrit 46.8 % (37.0-47.0); Hemoglobin 15.1 g/dL (12.0-15.0); Immature Granulocyte Absolute 0.05 K/mm3 (0.00-0.031); Immature Granulocyte Percent A 0.5 % (0-0.5); Lymphocytes Absolute Auto 1.89 K/mm3 (0.9-3.2); Lymphocytes Percent Auto 18.6 % (18.3-44.2); Mean Corpuscular HGB Conc 32.3 g/dl (32-36); Mean Corpuscular Hemoglobin 30.5 pg (26-34); Mean Corpuscular Volume 94.5 fl (80-100); Mean Platelet Volume 9.5 fl (7.4-10.4); Monocytes Absolute Auto 0.9 K/mm3 (0.1-0.6); Monocytes Percent Auto 8.9 % (2.6-8.5); Neutrophils Percent Auto 69.2 % (45.5-73.1); Platelet Count Result 265 k/mm3 (150-375); Red Blood Count 4.95 M/mm3 (4.2-5.4); Red Cell Distribution Width 12.5 % (11.5-14.5); White Blood Count 10.2 K/mm3 (4.5-10.0)
[2024-04-01 20:43] VITALS: BP 178/84; PULSE 119; RESP 21; O2SAT 98
[2024-04-01 20:45] LABS: Alanine Aminotransferase 21 U/L (6-35); Albumin Level 4.4 g/dL (3.5-5.1); Alkaline Phosphatase 76 U/L (38-126); Anion Gap 10 mmol/L (4-12); Aspartate Amino Transferase 28 U/L (14-36); Bilirubin,Total 0.3 mg/dL (0.2-1.3); Blood Urea Nitrogen 36 mg/dL (7-17); Calcium 9.1 mg/dL (8.4-10.2); Carbon Dioxide 22 mmol/L (22-30); Chloride 104 mmol/L (98-107); Estimated CRCL calculation 56 ml/min; Estimated Glomerular Filt Rate 49; Glucose 162 mg/dL (65-110); Potassium 4.2 mmol/L (3.4-5.0); Sodium 136 mmol/L (137-145)
--- NOTE | 2024-04-01 20:46 | ED.GENADULT ---
HPI - General Adult General Chief complaint: Urogenital-Female Stated complaint: flank pain Time Seen by Provider: 04/01/24 20:36 History of Present Illness HPI narrative: [age] female with history of ureteral calculi present to the emergency department for evaluation of right flank pain. Patient states the pain started acutely at 6:00 p.m.. Patient states this does feel very similar to her previous kidney stones. Patient typically follows up with Dr. Shin. Related Data Home Medications Medication Instructions Recorded Confirmed ibgghhot-lers-ruse 8 mg-folic 400 1 tablet PO DAILY 01/29/21 04/02/24 mcg-K 50 mcg-lutein 300 mcg tablet (Centrum Silver Women) omega-3s 360 gs-aoh-uwt-fish oil 2 cap PO BID 01/29/21 04/02/24 1,200 mg-D3 1,000 unit capsule (Fish Oil-Vit D3) calcium carbonate 400 mg PO BID 02/21/23 04/02/24 clobetasol 0.05 % topical cream 1 applic topical BID PRN fingers 04/02/24 04/02/24 diclofenac sodium 75 mg 75 mg PO BID 04/02/24 04/02/24 tablet,delayed release duloxetine 60 mg capsule,delayed 60 mg PO DAILY 04/02/24 04/02/24 release ezetimibe 10 mg tablet 10 mg PO DAILY 04/02/24 04/02/24 losartan 100 mg tablet 100 mg PO DAILY 04/02/24 04/02/24 pravastatin 80 mg tablet 80 mg PO DAILY 04/02/24 04/02/24 Allergies Allergy/AdvReac Type Severity Reaction Status Date / Time codeine AdvReac Intermediate Nausea Verified 04/01/24 20:13 Review of Systems Review of Systems: All systems reviewed & are unremarkable except as noted in HPI and below PMFSH Past Medical History Medical History (Updated 04/02/24 @ 07:29 by Hubert Bernal MD) Abnormal finding on urinalysis WALT-inhibitor cough Anxiety with depression Benign essential hypertension Body mass index (BMI) 40.0-44.9, adult Body mass index (BMI) 45.0-49.9, adult Colon cancer screening Distal radius fracture, right Dizziness DJD (degenerative joint disease), multiple sites NNACE (dyspnea on exertion) Dyshidrotic eczema Eczema Elevated glucose Encounter for Medicare annual wellness exam Encounter for routine adult health examination without abnormal findings Encounter to establish care Facial pain Fall FHx: colon cancer First degree AV block Follow up History of kidney stones Hx of breast cancer Hyperlipidemia Hypothyroidism (acquired) Lichen sclerosus Neck pain 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 Orthostatic hypotension LUIS on CPAP Post-menopausal Retinal hole of left eye Right wrist fracture Swelling of right eyelid Traumatic hematoma of cheek Surgical History Surgical History Hx of bilateral mastectomy Family History Family History Mother Family history of rheumatoid arthritis Family history of renal failure Grandparent Family history of respiratory disorder Diabetes mellitus Acute myocardial infarction Sibling Carcinoma of colon Father Family history of renal failure Social History Social History Smoking status: Never smoker Second hand tobacco smoke exposure: Yes Alcohol intake: current Drinks per week: 14 Alcohol use details: WINE Substance use: never Substance use type: does not use Do You Feel Safe in your Home?: Yes Lack of Transportation: No Lack of Food: Never True Current Housing: I Have Housing Concerned About Future Housing: No Difficulty Paying Gas/Electric Bills: No Difficulty Paying for Meds: No Currently Unemployed: No Education: Master's Degree or Higher Difficulty w/ Childcare or Family Care: No Living arrangements: alone Gender identity (if verbalized by the patient): Female Sexual Orientation (if Verbalized by the Patient): Straight or Heterosexual Spiritual care concerns: No Exam Narrative: APPEARANCE: well-appearing no distress HEAD: normocephalic, atrau
[2024-04-01 21:31] LABS: Add Urine Microscopic? YES; Appearance Urine Cloudy (Clear); Bacteria Urine None Seen /hpf; Bilirubin Urine Negative (Negative); Blood Urine Non-Hemolyzed Trace (Negative); Color Urine Yellow (Yellow); Glucose Urine UA Negative (Negative); Ketones Urine Trace mg/dL (Negative); Leukocyte Esterase Ur Trace LEU/UL (Negative); Nitrate Urine Negative (Negative); Non Pathogenic Casts 0-2; Protein Urine 1+ mg/dL (Negative); Specific Grav Ur 1.027 (1.001-1.035); Squamous Epithelial Cell Urine Few /hpf (Few)
[2024-04-01] MEDS: HYDROmorphone HCL INJ (*CRX) 1 MG/ML SYR 0.5 MG IV PUSH ×2 (21:56→23:59)
[2024-04-01 22:13] VITALS: BP 164/96; PULSE 104; RESP 15; O2SAT 94
[2024-04-02] VITALS (15 sets, daily range): BP systolic 141–197; BP diastolic 71–100; PULSE 94–120; RESP 10–20; TEMP 36.2–36.9; O2SAT 94–100; BMI 49.4
[2024-04-02] MEDS: HYDROmorphone HCL INJ (*CRX) 1 MG/ML SYR 0.5 MG IV PUSH (02:09)
--- NOTE | 2024-04-02 02:28 | ADMGEN ---
This patient, Disha Nguyen, was admitted to Medical Room 342-01. Patient/family oriented to hospital policies and general routines including ID bracelet, bed and alarms, visiting hours, pain management, procedures, bathroom and other care routines, personal items, smoking policy, room service/diet, and visiting hours. Information on how to activate the Rapid Response Team has been discussed. Patient/Family are encouraged to report perceived risks to care and to ask questions if they do not understand what they are told or what they should do.
[2024-04-02] MEDS: SODIUM CHLORIDE 0.9% IV 1,000 ML 125 ML IV CONT (02:41)
[2024-04-02] MEDS: HYDROmorphone HCL INJ (*CRX) 1 MG/ML SYR IV PUSH ×2 (05:29→08:52)
--- NOTE | 2024-04-02 08:09 | WPDURCON ---
Assessment and Plan Assessment and plan (1) Right ureteral calculus: Code(s): N20.1 - Calculus of ureter Status: Acute Assessment and Plan: Keep NPO. Have discussed cystoscopy, right retrograde pyelogram , right stent placement with possible ureteroscopy and laser. Will see if there is time available today. Urology Consult Note HPI Date Seen: 04/02/24 Time Seen: 08:09 Requesting Physician: Virginia Junior MD Primary Care Provider: Andriy Prather MD Consult Narrative Reason for consult: 1 cm right UPJ calculus Narrative: Disha Nguyen is a 74 year old female who presented emergency room with right flank pain. She was on a 1 cm right UPJ stone with mild hydronephrosis. She was admitted for pain control and further management. Denies any fevers. White count was 10.1 with a creatinine of 1.1. Urinalysis does not appear infected. She is resting fairly comfortably with the use of narcotics. Review of Systems Review of Systems: All systems reviewed & are unremarkable except as noted in HPI and below PMFSH Past Medical History Medical History Abnormal finding on urinalysis WALT-inhibitor cough Anxiety with depression Benign essential hypertension Body mass index (BMI) 40.0-44.9, adult Body mass index (BMI) 45.0-49.9, adult Colon cancer screening Distal radius fracture, right Dizziness DJD (degenerative joint disease), multiple sites NANCE (dyspnea on exertion) Dyshidrotic eczema Eczema Elevated glucose Encounter for Medicare annual wellness exam Encounter for routine adult health examination without abnormal findings Encounter to establish care Facial pain Fall FHx: colon cancer First degree AV block Follow up History of kidney stones Hx of breast cancer Hyperlipidemia Hypothyroidism (acquired) Lichen sclerosus Neck pain On senior care drug therapy Orthostatic hypotension LUIS on CPAP Post-menopausal Retinal hole of left eye Right wrist fracture Swelling of right eyelid Traumatic hematoma of cheek Surgical History Surgical History Hx of bilateral mastectomy Family History Family History Mother Family history of rheumatoid arthritis Family history of renal failure Grandparent Family history of respiratory disorder Diabetes mellitus Acute myocardial infarction Sibling Carcinoma of colon Father Family history of renal failure Social History Social History Smoking status: Never smoker Second hand tobacco smoke exposure: Yes Alcohol intake: current Drinks per week: 14 Alcohol use details: WINE Substance use: never Substance use type: does not use Do You Feel Safe in your Home?: Yes Lack of Transportation: No Lack of Food: Never True Current Housing: I Have Housing Concerned About Future Housing: No Difficulty Paying Gas/Electric Bills: No Difficulty Paying for Meds: No Currently Unemployed: No Education: Master's Degree or Higher Difficulty w/ Childcare or Family Care: No Living arrangements: alone Gender identity (if verbalized by the patient): Female Sexual Orientation (if Verbalized by the Patient): Straight or Heterosexual Spiritual care concerns: No Meds Home Medications and Allergies Home Medications Medication Instructions Recorded Confirmed Type sctaeioe-umvd-iect 8 mg-folic 400 1 tablet PO DAILY 01/29/21 04/02/24 History mcg-K 50 mcg-lutein 300 mcg tablet (Centrum Silver Women) omega-3s 360 uf-fly-hdo-fish oil 2 cap PO BID 01/29/21 04/02/24 History 1,200 mg-D3 1,000 unit capsule (Fish Oil-Vit D3) calcium carbonate 400 mg PO BID 02/21/23 04/02/24 History clobetasol 0.05 % topical cream 1 applic topical BID PRN fingers 04/02/24 04/02/24 History diclofenac sodiu
--- NOTE | 2024-04-02 08:12 | WPDHPUPDATE1 ---
History and Physical Update Update Date/Time: 04/02/24 08:12 History and Physical has been reviewed, including an updated exam of the patient. There are NO changes in the patient's condition. Risks, benefits, and alternatives have been discussed and questions answered. Patient agrees to proceed with procedure.
[2024-04-02] MEDS: ONDANSETRON INJ 4 MG/2 ML VIAL IV PUSH (08:52)
--- NOTE | 2024-04-02 09:24 | PM.IMHP ---
H&P: HPI History of Present Illness Date/Time: 04/02/24 09:24 Chief Complaint: Flank pain Narrative: This is a 74-year-old female with a significant past medical history of kidney stones, anxiety, depression hypertension, hyperlipidemia, breast cancer status post bilateral mastectomy, hypothyroidism, LUIS on CPAP who presented to the hospital with right sided flank pain that started about 6:00 p.m. last night. Patient provides the history of presenting illness. She states her symptoms started about 6:00 p.m. and had right-sided flank pain which she has had in the past with kidney stones. She is followed by [facility] on an outpatient basis. Patient denies any fever, chills, nausea, vomiting, diarrhea, abdominal pain, chest pain, shortness a breath. Patient endorses will flank pain and a sore throat. Workup in the hospital included an abdomen/pelvis CT which shown stone in the right pelviureteric junction with hydronephrotic changes, panniculitis which is unchanged from previous exam, multiple hepatic cyst unchanged from previous exam, multiple pair aortic lymph nodes with the largest measuring 2.2 cm, left basal nodule measuring 6 mm. Abdominal x-ray shows stone at the right ureteropelvic junction. Initial labs shown a white blood cell count of 10.2, hemoglobin 15.1, sodium 136, creatinine 1.1, creatinine 1.10, EGFR 49. UA showed cloudy appearance, 1+ urine protein, trace ketone, trace leukocytes, 3-5 urine RBC, 6-10 urine WBC. Urine culture was obtained and is pending. Patient was given Rocephin and Dilaudid while in the ED. Urology was consulted and plans for cystoscopy today. Review of Systems Review of Systems: All systems reviewed & are unremarkable except as noted in HPI and below Constitutional: Constitutional: Reports as per HPI and Reports no additional constitutional complaints Eyes: Eyes: Reports as per HPI and Reports no additional eye complaints ENT: Reports system reviewed and no additional complaints, except as documented and Reports as per HPI Cardiovascular: Cardiovascular: Reports as per HPI and Reports no additional cardiovascular complaints Respiratory: Respiratory: Reports as per HPI and Reports no additional respiratory complaints Gastrointestinal: Gastrointestinal: Reports as per HPI and Reports no additional gastrointestinal complaints Genitourinary: Genitourinary: Reports no additional female genitourinary complaints and Reports as per HPI Musculoskeletal: Musculoskeletal: Reports no additional musculoskeletal complaints and Reports as per HPI Integumentary/Breasts: Skin/Breast: Reports system reviewed and no additional complaints, except as docu and Reports as per HPI Neurologic: Reports system reviewed and no additional complaints, except as documented and Reports as per HPI Psychiatric: Psychiatric: Reports no additional psychiatric complaints and Reports as per HPI [facility] Past Medical History Medical History Abnormal finding on urinalysis WALT-inhibitor cough Anxiety with depression Benign essential hypertension Body mass index (BMI) 40.0-44.9, adult Body mass index (BMI) 45.0-49.9, adult Colon cancer screening Distal radius fracture, right Dizziness DJD (degenerative joint disease), multiple sites NANCE (dyspnea on exertion) Dyshidrotic eczema Eczema Elevated glucose Encounter for Medicare annual wellness exam Encounter for routine adult health examination without abnormal findings Encounter to establish care Facial pain Fall FHx: colon cancer First degree AV block Follow up History of kidney stones Hx of breast cancer Hyperlipidemia Hypothyroidism (acquired) Lichen sclerosus Neck pain On rn long term care drug therapy Orthostatic hypotension LUIS on CPAP Post-menopausal Retinal hole of left eye Right wrist fracture Swelling of right eyelid Traumatic hematoma of cheek Surgical History Surgical History (Reviewed 04/02/24 @ 16:29 by Betsy
[2024-04-02] MEDS: LOSARTAN POTASSIUM 100 MG TABLET PO (10:46)
--- NOTE | 2024-04-02 11:12 | PC.NURSE ---
Pt traveling via wheelchair to pre-op. Report given to BETTIE Reilly.
[2024-04-02] MEDS: LACTATED RINGERS 1,000 ML 30 ML IV CONT ×2 (11:20→14:28)
--- NOTE | 2024-04-02 12:31 | WPDANESEPPF ---
Anes - Initial Pre Proc Eval Procedure: Operation Date: 04/02/24 12:30 Proposed Procedures p Cystoscopy, Right Ureteroscopy, Possible Right Retrograde Pyelogram, Possible Right Stone Extraction, Possible Right Stent Placement, Possible Holmium Laser Procedure - Balta Shin MD Date/Time: 04/02/24 12:31 Surgeon: Virginia Junior MD Pre Op Diagnosis: Ureteral calculi Patient Data Age: 74 Gender: F Height: 1.65 m Weight: 134.6 kg Last Vital Signs Temp 36.9 C 04/02/24 05:23 Pulse 94 04/02/24 05:23 Resp 20 04/02/24 05:23 BP 170/95 H 04/02/24 05:23 Pulse Ox 96 04/02/24 05:23 O2 Del Method CPAP 04/02/24 03:00 Allergies Allergy/AdvReac Type Severity Reaction Status Date / Time codeine AdvReac Intermediate Nausea Verified 04/01/24 20:13 Home Medications Medication Instructions Recorded Confirmed Type hutukydh-bica-tgaw 8 mg-folic 400 1 tablet PO DAILY 01/29/21 04/02/24 History mcg-K 50 mcg-lutein 300 mcg tablet (Centrum Silver Women) omega-3s 360 am-doy-yzc-fish oil 2 cap PO BID 01/29/21 04/02/24 History 1,200 mg-D3 1,000 unit capsule (Fish Oil-Vit D3) calcium carbonate 400 mg PO BID 02/21/23 04/02/24 History clobetasol 0.05 % topical cream 1 applic topical BID PRN fingers 04/02/24 04/02/24 History diclofenac sodium 75 mg 75 mg PO BID 04/02/24 04/02/24 History tablet,delayed release duloxetine 60 mg capsule,delayed 60 mg PO DAILY 04/02/24 04/02/24 History release ezetimibe 10 mg tablet 10 mg PO DAILY 04/02/24 04/02/24 History losartan 100 mg tablet 100 mg PO DAILY 04/02/24 04/02/24 History pravastatin 80 mg tablet 80 mg PO DAILY 04/02/24 04/02/24 History Laboratory Tests 04/01/24 04/01/24 20:28 21:20 WBC 10.2 H K/mm3 (4.5-10.0) RBC 4.95 M/mm3 (4.2-5.4) Hgb 15.1 H g/dL (12.0-15.0) Hct 46.8 % (37.0-47.0) MCV 94.5 fl (80-100) MCH 30.5 pg (26-34) MCHC 32.3 g/dl (32-36) RDW 12.5 % (11.5-14.5) Plt Count 265 k/mm3 (150-375) MPV 9.5 fl (7.4-10.4) Immature Gran % (Auto) 0.5 % (0-0.5) Neut % (Auto) 69.2 % (45.5-73.1) Lymph % (Auto) 18.6 % (18.3-44.2) [place] % (Auto) 8.9 H % (2.6-8.5) Eos % (Auto) 2.3 % (0-4.4) Baso % (Auto) 0.5 % (0.2-1.2) Lymph # (Auto) 1.89 K/mm3 (0.9-3.2) Bacon # (Auto) 0.9 H K/mm3 (0.1-0.6) Eos # (Auto) 0.2 K/mm3 (0-0.3) Baso # (Auto) 0.1 K/mm3 (0.0-0.1) Abs Immat Gran (auto) 0.05 H K/mm3 (0.00-0.031) Absolute Neuts (auto) 7.0 H K/mm3 (1.3-6.7) Absolute Nucleated RBC 0.000 K/mm3 (0.0-0.012) Nucleated RBC % 0.0 % (0.0-0.2) Sodium 136 L mmol/L (137-145) Potassium 4.2 mmol/L (3.4-5.0) Chloride 104 mmol/L (98-107) Carbon Dioxide 22 mmol/L (22-30) Anion Gap 10 mmol/L (4-12) BUN 36 H D mg/dL (7-17) Creatinine 1.10 H mg/dL (0.7-1.0) Estim Creat Clear Calc 56 ml/min Estimated GFR 49 L (59 - ) Glucose 162 H mg/dL (65-110) Calcium 9.1 mg/dL (8.4-10.2) Total Bilirubin 0.3 mg/dL (0.2-1.3) AST 28 U/L (14-36) ALT 21 U/L (6-35) Alkaline Phosphatase 76 U/L (38-126) Total Protein 8.0 g/dL (6.3-8.2) Albumin 4.4 g/dL (3.5-5.1) Urine Color Yellow (Yellow) Urine Appearance Cloudy H (Clear) Urine pH 5.0 (5.0-9.0) Ur Specific [place] 1.027 (1.001-1.035) Urine Protein 1+ H mg/dL (Negative) Urine Glucose (UA) Negative mg/dL (Negative) Urine Ketones Trace H mg/dL (Negative) Ur Blood (Man) Non-hemolyzed trace H (Negative) Urine Nitrate Negative (Negative) Urine Bilirubin Negative (Negative) Urine Urobilinogen 1.0 mg/dL (<2.0) Leukocyte Esterase Rfl Trace H TOM/UL (Negative) Urine RBC
--- NOTE | 2024-04-02 14:03 | P.OP_ITS ---
Procedure Note - Detailed Date of Procedure 04/02/24 Pre-op Diagnosis Right UPJ and renal calculi Post-op Diagnosis Same Procedure Performed Cystoscopy, right retrograde, right ureteroscopy with holmium laser, right ureteral stent placement Surgeon Balta Shin MD Anesthesia General Description of Procedure Patient was taken to the operative suite correctly identified. Once anesthesia was obtained she was placed in dorsal lithotomy position and prepped draped usual sterile fashion. Twenty-two Panamanian scope inserted in the bladder. There is no tumors noted the right ureteral orifice was cannulated with a guidewire. Ureteral access sheath was placed. Mini flexible ureteral scope was then place d. Surprisingly this 8 mm UPJ stone was not seen in most of flush back into the kidney. Inspection of the kidney revealed no discrete stones initially. She has a very posterior the lateral calyx which was somewhat narrow but we were able to manipulate into this. Once we got into it we saw 4 stones sitting there. They were about 8-10 mm each. Using a 400 micron fiber we dusted and lasered the stones. Given its location would been too difficult to retrieve all these. We thus decided to terminate the procedure. Pyelogram was then performed. 4.8 Panamanian contour stent was then placed with the proximal end coiled in the renal pelvis and the distal bladder. 2% viscous lidocaine was inserted urethra patient is taken recovery stable condition. Plan will be for a CT scan next week for re-evaluation prior to any removal of stent. Patient can be discharged home from Urology standpoint. This completes dictation. Please send a copy of op note to my office. Estimated Blood Loss 0 Drains Yes Packing No Pathology None sent Complications No immediate complications Condition Stable Disposition PACU
--- NOTE | 2024-04-02 15:25 | PC.NURSE ---
Returned from OR per stretcher. Bedside report received from BETITE Maloney.
[2024-04-02] MEDS: PRAVASTATIN SODIUM 20 MG TABLET 80 MG PO (16:32)
[2024-04-02] MEDS: EZETIMIBE 10 MG TABLET PO (16:32)
[2024-04-02] MEDS: DULoxetine HCL 60 MG CAPSULE.DR PO (16:33)
[2024-04-02] MEDS: polyethylene glycoL 3350 17 GM POWD.PACK PO (16:35)
[2024-04-02] MEDS: ACETAMINOPHEN 500 MG TABLET 1000 MG PO (16:36)
[2024-04-02] MEDS: DICLOFENAC SOD 75 MG TABLET.EC PO (16:36)
[2024-04-03 01:17] VITALS: BP 132/76; PULSE 95; RESP 18; TEMP 36.6; O2SAT 96
[2024-04-03 05:17] VITALS: BP 115/57; PULSE 59; RESP 17; TEMP 36.8; O2SAT 99
[2024-04-03 05:51] LABS: Basophils Percent Auto 0.2 % (0.2-1.2); Eosinophils Percent Auto 0.2 % (0-4.4); Hematocrit 43.9 % (37.0-47.0); Hemoglobin 13.5 g/dL (12.0-15.0); Immature Granulocyte Absolute 0.07 K/mm3 (0.00-0.031); Immature Granulocyte Percent A 0.7 % (0-0.5); Lymphocytes Absolute Auto 1.54 K/mm3 (0.9-3.2); Lymphocytes Percent Auto 15.6 % (18.3-44.2); Mean Corpuscular HGB Conc 30.8 g/dl (32-36); Mean Corpuscular Hemoglobin 29.8 pg (26-34); Mean Corpuscular Volume 96.9 fl (80-100); Mean Platelet Volume 9.6 fl (7.4-10.4); Monocytes Absolute Auto 0.9 K/mm3 (0.1-0.6); Monocytes Percent Auto 8.9 % (2.6-8.5); Neutrophils Absolute Auto 7.4 K/mm3 (1.3-6.7); Neutrophils Percent Auto 74.4 % (45.5-73.1); Platelet Count Result 258 k/mm3 (150-375); Red Blood Count 4.53 M/mm3 (4.2-5.4); Red Cell Distribution Width 12.7 % (11.5-14.5); White Blood Count 9.9 K/mm3 (4.5-10.0)
[2024-04-03 06:16] LABS: Alanine Aminotransferase 19 U/L (6-35); Albumin Level 4.2 g/dL (3.5-5.1); Alkaline Phosphatase 61 U/L (38-126); Anion Gap 11 mmol/L (4-12); Aspartate Amino Transferase 29 U/L (14-36); Bilirubin,Total 0.5 mg/dL (0.2-1.3); Blood Urea Nitrogen 25 mg/dL (7-17); Calcium 8.6 mg/dL (8.4-10.2); Carbon Dioxide 25 mmol/L (22-30); Chloride 101 mmol/L (98-107); Estimated CRCL calculation 51 ml/min; Estimated Glomerular Filt Rate 44; Glucose 123 mg/dL (65-110); Potassium 4.4 mmol/L (3.4-5.0); Sodium 137 mmol/L (137-145)
--- NOTE | 2024-04-03 07:30 | ECG_ITS ---
Test Date: 2024-04-03 07:49:50 Measurements Intervals [place] Rate: 92 P: 42 WI: 200 QRS: -16 QRSD: 80 T: 68 QT: 355 QTc: 440 Interpretive Statements SINUS RHYTHM WITH FIRST DEGREE AV BLOCK WITH OCCASIONAL VENTRICULAR PREMATURE COMPLEXES DELAYED PRECORDIAL R/S TRANSITION LOW QRS VOLTAGE IN PRECORDIAL LEADS BASELINE ARTIFACT- I, II, III, AVR, AVL, AVF, V1-V6 BORDERLINE ECG Compared to ECG 04/01/2024 20:20:56 SINUS RHYTHM NOW PRESENT Electronically Signed On 04-03-2024 07:55:26 CDT by Julius Bhatt D.O.
--- NOTE | 2024-04-03 07:37 | WPDANESPN ---
Anes - Prog Note Post-Op Date/Time: 04/03/24 07:37 Cardiovascular status: normal Respiratory status: normal Airway patency: baseline Mental status: baseline Post-Op hydration status: normal Vital Signs: Last Vital Signs Temp 36.8 C 04/03/24 05:17 Pulse 59 L 04/03/24 05:17 Resp 17 04/03/24 05:17 BP 115/57 L 04/03/24 05:17 Pulse Ox 99 04/03/24 05:17 O2 Del Method Nasal Cannula 04/02/24 15:34 O2 Flow Rate 1 04/02/24 15:34 Pain Score (VAS): 0/10 I/O: Intake & Output 04/02/24 04/02/24 04/03/24 15:59 23:59 07:59 Intake Total 50 1050 175 Output Total 1600 1000 Balance 50 -850 -558 Laboratory Tests 04/03/24 05:17 04/03/24 05:17 04/03/24 05:17 WBC 9.9 RBC 4.53 Hgb 13.5 Hct 43.9 MCV 96.9 MCH 29.8 MCHC 30.8 L RDW 12.7 Plt Count 258 MPV 9.6 Immature Gran % (Auto) 0.7 H Neut % (Auto) 74.4 H Lymph % (Auto) 15.6 L [place] % (Auto) 8.9 H Eos % (Auto) 0.2 Baso % (Auto) 0.2 Lymph # (Auto) 1.54 [place] # (Auto) 0.9 H Eos # (Auto) 0.0 Baso # (Auto) 0.0 Abs Immat Gran (auto) 0.07 H Absolute Neuts (auto) 7.4 H Absolute Nucleated RBC 0.000 Nucleated RBC % 0.0 Sodium 137 Potassium 4.4 Chloride 101 Carbon Dioxide 25 Anion Gap 11 BUN 25 H D Creatinine 1.20 H Estim Creat Clear Calc 51 Estimated GFR 44 L Glucose 123 H Calcium 8.6 Total Bilirubin 0.5 AST 29 ALT 19 Alkaline Phosphatase 61 Total Protein 7.0 Albumin 4.2 Microbiology 04/01/24 21:20 Unspecified Urine Culture - Final Post-procedural complaints: none Patient Feedback: Patient satisfied with anesthetic care.
--- NOTE | 2024-04-03 08:12 | PM.DS ---
DS: Admitting Diagnosis Discharge Date 04/03/24 Admitting Diagnosis Right ureteral calculus Hypertension Hypothyroidism LUIS DS: Discharge Diagnosis Discharge Diagnosis (1) Right ureteral calculus: Code(s): N20.1 - Calculus of ureter Status: Acute (2) Benign essential hypertension: Code(s): I10 - Essential (primary) hypertension Status: Acute (3) Hypothyroidism (acquired): Code(s): E03.9 - Hypothyroidism, unspecified Status: Acute (4) LUIS on CPAP: Code(s): G47.33 - Obstructive sleep apnea (adult) (pediatric); Z99.89 - Dependence on other enabling machines and devices Status: Acute DS: Summary Hospital Course Reason for hospitalization: Right ureteral calculus Hypertension Hypothyroidism LUIS Hospital Course: This is a 74-year-old female with a significant past medical history of kidney stones, anxiety, depression hypertension, hyperlipidemia, breast cancer status post bilateral mastectomy, hypothyroidism, LUIS on CPAP who presented to the hospital with right sided flank pain that started about 6:00 p.m. last night. Patient provides the history of presenting illness. She states her symptoms started about 6:00 p.m. and had right-sided flank pain which she has had in the past with kidney stones. She is followed by [facility] on an outpatient basis. Patient denies any fever, chills, nausea, vomiting, diarrhea, abdominal pain, chest pain, shortness a breath. Patient endorses will flank pain and a sore throat. Workup in the hospital included an abdomen/pelvis CT which shown stone in the right pelviureteric junction with hydronephrotic changes, panniculitis which is unchanged from previous exam, multiple hepatic cyst unchanged from previous exam, multiple pair aortic lymph nodes with the largest measuring 2.2 cm, left basal nodule measuring 6 mm. Abdominal x-ray shows stone at the right ureteropelvic junction. Initial labs shown a white blood cell count of 10.2, hemoglobin 15.1, sodium 136, creatinine 1.1, creatinine 1.10, EGFR 49. UA showed cloudy appearance, 1+ urine protein, trace ketone, trace leukocytes, 3-5 urine RBC, 6-10 urine WBC. Urine culture was obtained and is pending. Patient was given Rocephin and Dilaudid while in the ED. Urology was consulted and took patient for cystoscopy with right ureteral stent placement. She was reported as a difficult extubation and was brought back to the floor on 2 L nasal cannula. She was observed overnight and oxygen was weaned off. Labs and EKG reviewed this morning. Patient is stable for discharge at this time. She will need to follow up with Urology in 1-2 weeks. Final diagnosis: Right ureteral calculus, kidney stones Status at Discharge Cognitive/behavioral status at discharge: Alert oriented x3 Functional status at discharge: independent ambulation Overall status at discharge: patient is progressing back to baseline Time Spent with Patient Time attestation: Total time spent providing and/or coordinating discharge services: Time spent: Greater than 30 minutes Exam Narrative: General: In no acute distress, well nourished Cardiac: Normal S1 and S2. NSR with 1st degree AVB, No murmur, gallops or friction rubs, peripheral pulses intact. Respiratory: Lungs clear to auscultation, no adventitious lung sounds, currently on room air Gastrointestinal: soft, non-distended, non-tender, normoactive bowel sounds. : voiding without difficulty. Neuro: Alert and oriented x4 DS: Data Data Completed and Pending Completed studies during hospitalization: Retrograde pyelogram Abdomen x-ray Abdomen/pelvis CT Pending studies at discharge: aerobic and anaerobic cultures the right kidney are still pending Labs on day of discharge: Labs from last 24 hours 04/03/24 05:17 WBC 9.9 RBC 4.53 Hgb 13.5 Hct 43.9 MCV 96.9 MCH 29.8 MCHC 30.8 L RDW 12.7 Plt Count 258 MPV 9.6 Immature Gran % (Auto) 0.7 H Neut % (Auto) 74.4 H
[2024-04-03 08:52] VITALS: BP 166/82; PULSE 95; RESP 18; TEMP 36.7; O2SAT 95
[2024-04-03 08:59] VITALS: O2SAT 96
[2024-04-03] MEDS: PRAVASTATIN SODIUM 20 MG TABLET 80 MG PO (09:50)
[2024-04-03] MEDS: LOSARTAN POTASSIUM 100 MG TABLET PO (09:51)
[2024-04-03] MEDS: DULoxetine HCL 60 MG CAPSULE.DR PO (09:51)
[2024-04-03] MEDS: DICLOFENAC SOD 75 MG TABLET.EC PO (09:51)
[2024-04-03] MEDS: EZETIMIBE 10 MG TABLET PO (09:51)
== END 2024-04-03 11:16 | disposition home or self-care (01) ==
LOC: ANHED 20:47 → ANH3MED 04-02 02:12
PROVIDERS: Nurse Practitioner Acute Care; Urology; Admitting Provider Internal Medicine; Emergency Provider Emergency Medicine; PCP Internal Medicine; Visit Provider Internal Medicine
PROC: (CPT 52352; principal; 2024-04-02 12:30)
DX: N13.2 Hydronephrosis with renal and ureteral calculous obstruction (principal); Z87.442 Personal history of urinary calculi; E66.01 Morbid (severe) obesity due to excess calories; Z68.42 Body mass index [BMI] 45.0-49.9, adult; I10 Essential (primary) hypertension; E78.5 Hyperlipidemia, unspecified; F41.8 Other specified anxiety disorders; E03.9 Hypothyroidism, unspecified; G47.33 Obstructive sleep apnea (adult) (pediatric); Z99.89 Dependence on other enabling machines and devices
CPT/HCPCS: 52356; 36415; 74018; 74176; 74420; 80053; 81001; 85025; 87070; 87075; 87086; 87205; 93005; 96365; 96375; 96376; 99285; A9270; C1769; C1894; C2617; G0378; J0696; J1100; J1170; J2371; J2405; J2704; J3010; J7030; J7120; Q9966

== ENCOUNTER 2024-04-19 16:11 | Outpatient (CLI) | payer MEDICARE, SELFPAY ==
--- NOTE | ~2024-04-19 | XR_ITS ---
XR abdomen/kub 1V Ordering provider: Balta Shin MD History: . right renal stone . Comparison: April 02, 2024 FINDINGS: BOWEL: Nonobstructive bowel gas pattern. ORGANOMEGALY: None. SIGNIFICANT PATHOLOGIC CALCIFICATIONS: None. Right double-J stent. OTHER: No free air is seen under the diaphragm. Degenerative changes of the spine. Bilateral sacroiliitis. Bilateral hip osteoarthritic changes. IMPRESSION: NO ACUTE ABDOMINAL FINDINGS. No definite stones seen. If still suspicious CT is advised Reviewed, dictated and finalized at location A.
--- NOTE | ~2024-04-19 | CT_ITS ---
CLINICAL INDICATION: Right renal calculus. COMPARISON: Examination was compared with multiple prior studies, performed most recently on and dating back to 09/30/2012 TECHNIQUE: Computed tomography (CT) of the abdomen and pelvis was performed without intravenous contr ast. The dose-length product was 1339 mGy-cm. FINDINGS/OBSERVATIONS: Visualized lower thorax:Redemonstration of a 7 mm nodule within the left lower lobe (axial series, im age 26), unchanged dating back to 2012, for which no further follow-up is needed. The heart is of normal size, without pericardial effusion. Liver: Multiple rounded areas of decreased attenuation are identified scattered throughout the liver, unchanged from 2013 representing cysts. Punctate calcifications identified within the dome of the liver, suggesting prior granulomatous disea se. Gallbladder and biliary system: The gallbladder is decompressed. Pancreas: Limited evaluation of the pancreas secondary to the lack of intravenous contrast. Spleen: The unenhanced spleen is unremarkable, and not enlarged. Kidneys: Interval resolution of the right sided hydroureteronephrosis seen on most recent CT examinat ion dated 04/01/2024. Interval placement of a double-J stent, with its proximal pigtail in the interpo lar region of the right kidney and the distal pigtail is coiled within the bladder. 6 mm calculus wit hin the periphery of a lower pole calyx within the right kidney without additional renal calculi visu alized. The left kidney is unremarkable, without renal calculi or hydronephrosis. Adrenal glands: The bilateral adrenal glands are unremarkable in their contour. Gastrointestinal tract: Colonic diverticulosis with mild fecal stasis, specifically within the rectum . Appendix:The appendix is not visualized, however no pericecal inflammatory changes identified to sugg est the presence of acute appendicitis. Vasculature: Calcified atherosclerotic disease within the abdominal aorta. Lymph nodes: Redemonstration of hazy infiltration of the mesentery, with interval development of mult iple pathologically enlarged lymph nodes within the retroperitoneum and at the root of the mesentery. The largest is within the left para-aortic position measuring 21 mm in short axis dimension (series 2 , image 94). There is an additional left para-aortic lymph node at the level of the left renal vein measuring 18 m m in short axis dimension (axial series, image 81). If necessary, these are amenable to percutaneous biopsy. Pelvic structures:The uterus is either atrophic or surgically absent. Body wall and musculoskeletal: Degenerative disease is identified within the lower thoracic and lumbo sacral spine, with osteophyte formation, disc space narrowing, endplate changes and vacuum phenomena. No lytic or blastic lesions are identified. A fat-containing complex umbilical hernia is present. A sebaceous cyst is identified at the level of T10, along the anterolateral abdominal wall. Bilateral breast implants, partially calcified are demonstrated. IMPRESSION: Interval resolution of the right-sided hydroureteronephrosis with placement of a double-J stent, in g ood position with renal decompression. Residual 6 mm calculus within the lower pole calyx of the right kidney No significant stones are identified within the left kidney. Redemonstration of hazy infiltration of the mesentery, now with multiple pathologically enlarged lymp h nodes, at least 2 of which are amenable to image guided biopsy. Reviewed, dictated and finalized at location A. IMPRESSION: Interval resolution of the right-sided hydroureteronephrosis with placement of a double-J stent, in good position with renal decompression. Residual 6 mm calculus within the lower pole calyx
== END 2024-04-19 16:12 | disposition home or self-care (01) ==
LOC: ANHIMG 16:20
PROVIDERS: PCP Internal Medicine; Visit Provider Urology
DX: N13.30 Unspecified hydronephrosis (principal); N20.0 Calculus of kidney; Z96.0 Presence of urogenital implants
CPT/HCPCS: 74018; 74176

== ENCOUNTER 2024-05-06 07:35 | Outpatient (CLI) | payer MEDICARE, SELFPAY ==
--- NOTE | ~2024-05-06 | PE_ITS ---
EXAMINATION: PET skull to mid thigh DATE: 05/06/2024 09:31 INDICATION: Abdominal lymphadenopathy. TECHNIQUE: Blood glucose level was 131 mg/dL. 10.261 mCi of 18-fluorodeoxyglucose (18-FDG) was admini stered i.v. Low dose computed tomography (CT) images were acquired from the base of the brain to the proximal thighs for attenuation correction and anatomic localization. Automated exposure control was employed. Dose-length product (DLP) was 1266 mGy-cm. Positron emission tomography (PET) images were a cquired in the same distribution. COMPARISON: CT abdomen and pelvis 04/19/2024, 10/10/2022 FINDINGS: Head/neck: There are likely changes of ocular lens replacement surgeries. There is a 14 mm nodule in left thyroid lobe without increased activity, likely not clinically significant. There are no patholo gically enlarged lymph nodes. There is a normal-sized right internal jugular chain lymph node with ma ximum SUV of 4.0. Chest: The lungs demonstrate mild atelectasis. There is a 5 mm nodule in left lower lobe. Calcified r ight lung nodules and calcified right hilar lymph nodes are consistent with old granulomatous disease . No pleural effusion. Cardiomegaly is noted. No pericardial effusion. There are bilateral breast imp lants. Abdomen/pelvis/proximal thighs: There are cysts in the liver measuring up to 2.7 cm. There is a 1.8 c m cyst in the spleen. The pancreas, adrenal glands, and kidneys are normal. There are no dilated loop s of bowel. There is diverticulosis of the colon without evidence of diverticulitis. There is chronic fat stranding at the root of the small bowel mesentery, consistent with mesenteric panniculitis. The re is a mildly enlarged mesenteric lymph node measuring 1.1 x 2.3 cm without increased activity, like ly reactive. There is a 2.0 x 1.3 cm left para-aortic node with increased activity. There are normal- sized left para-aortic and aortocaval nodes with increased activity. No pleural effusion. There is no osseous malignancy. IMPRESSION: 1. Normal-sized right internal jugular and retroperitoneal lymph nodes with increased activity and mi ldly enlarged left paracolic lymph node with increased activity, likely reactive. Reviewed, dictated and finalized at location A. IMPRESSION: 1. Normal-sized right internal jugular and retroperitoneal lymph nodes with inc reased activity and mildly enlarged left paracolic lymph node with increased ac tivity, likely reactive.
[2024-05-06 08:00] LABS: Glucose Point of Care 131 mg/dl (65-105)
== END 2024-05-06 07:36 | disposition home or self-care (01) ==
PROVIDERS: PCP Internal Medicine; Visit Provider Internal Medicine
DX: R93.5 Abnormal findings on diagnostic imaging of other abdominal regions, including retroperitoneum (principal); R93.89 Abnormal findings on diagnostic imaging of other specified body structures; R59.9 Enlarged lymph nodes, unspecified; R59.0 Localized enlarged lymph nodes
CPT/HCPCS: 78815; A9552

== ENCOUNTER 2024-08-11 07:41 | Outpatient (CLI) | payer MEDICARE, SELFPAY ==
--- NOTE | ~2024-08-11 | CT_ITS ---
EXAMINATION: CT chest abdomen w con DATE: 08/11/2024 08:06 INDICATION: Abnormal findings on diagnostic imaging of other... FDG avid lymphadenopathy on prior PET /CT. TECHNIQUE: Computed tomography (CT) of the rest and abdomen was performed with 100 mL Omnipaque-350 i ntravenous contrast. Automated exposure control and iterative reconstruction technique were employed. The dose-length product was 1228.10 mGy-cm. COMPARISON: 04/19/2024 and 05/06/2024 FINDINGS: Chest: Calcified right lower lobe nodule along with calcified right hilar lymph nodes consistent with old gr anulomatous disease. Mild dependent atelectasis in bilateral lower lobes. No pneumonia, pulmonary deyanira ma or pleural effusion. Heart size is normal. No pericardial effusion. Thoracic aorta is normal in ca liber with no dissection. No pathologically enlarged thoracic lymphadenopathy. Multinodular goiter. B ilateral breast implants. Severe thoracic spondylosis. Abdomen: There are multiple hepatic cysts measuring up to 3.6 cm in maximal diameter. There are also couple he patic ossification consistent with old granulomatous disease. Gallbladder, spleen, pancreas, bilatera l adrenal glands and kidneys are normal. Visualized portions of bowels are unremarkable with no wall thickening or obstruction. No interval change in a nonspecific mild haziness to the root of mesentery where there are several mildly prominent but still normal-sized mesenteric lymph nodes which are wit hout interval change. Also without interval change in a few mildly enlarged left para aortic lymph no josefa the largest measuring up to 1.8 cm and 1.4 cm in maximal short axis diameters. Severe upper lumba r spondylosis. IMPRESSION: 1. No interval change in likely reactive mild left para-aortic lymphadenopathy. 2. No acute cardiopulmonary disease or pathologically enlarged thoracic lymphadenopathy. Reviewed, dictated and finalized at location B. DESIGN ENGINEER IMPRESSION: 1. No interval change in likely reactive mild left para-aortic lymphadenopathy. 2. No acute cardiopulmonary disease or pathologically enlarged thoracic lymphad enopathy.
[2024-08-11 08:02] LABS: Estimated Glomerular Filt Rate 49
== END 2024-08-11 07:42 | disposition home or self-care (01) ==
PROVIDERS: PCP Internal Medicine; Visit Provider Internal Medicine
DX: R93.5 Abnormal findings on diagnostic imaging of other abdominal regions, including retroperitoneum (principal); R92.8 Other abnormal and inconclusive findings on diagnostic imaging of breast; R91.1 Solitary pulmonary nodule; R91.8 Other nonspecific abnormal finding of lung field
CPT/HCPCS: 71260; 74160; Q9967

== ENCOUNTER 2024-08-18 16:24 | Outpatient (CLI) | payer MEDICARE, SELFPAY ==
--- OUTSIDE RECORDS SUMMARY | 2024-08-18 16:32 | XMS_ITS | Patient Health Summary ---
Author Organization [facility] Address [address] [place] [address] Care Team Providers Care Watch Engine Operator Name Role Phone Andriy Prather MD Primary Care Provider [phone] Raquel Evans RN Unavailable Unavailable Note from [facility],non-owned Affiliates and Associated Physician Practices is amultiple site organization consisting of ambulatory clinics and hospital sitesin [place], [place], [place] and [place]. This disclosure is being madepursuant to the Care Everywhere program and may not contain all information available regarding this patient. Last updated 18.[facility] Allergies * Codeine(Nausea and/or Vomiting) Medications * Be aware that medications may not be up to date on this document. Alwaysverify current medications with the patient. * lisinopril-hydroCHLOROthiazide (PRINZIDE; ZESTORETIC) 20-12.5 MG tablet Take 1 Tab by mouth once daily * omeprazole (PRILOSEC) 40 MG capsule Take 40 mg by mouth daily before breakfast * [place]-3 Fatty Acids (FISH OIL) 1200 MG * Calcium Carbonate-Vit D-Min (CALCIUM 1200 PO) * INV-DULoxetine/placebo (CYMBALTA) capsule Take 60 mg by mouth once daily * Multiple Vitamins-Minerals (WOMENS ONE DAILY PO) * acetaminophen (TYLENOL) 500 MG tablet(Started 03/01/2016) Take 2 Tabs by mouth every 6 hours as needed for Fever or Pain Maximum allowable Acetaminophen amount = 4 Grams (4000 mg) / 24 hours. * celecoxib (CELEBREX) 200 MG capsule(Started 03/01/2016) Take 1 Cap by mouth once daily 1 refill left * oxyCODONE-acetaminophen (PERCOCET) 10-325 MG tablet(Started 03/01/2016) Take 1 tab every 4 to 6 hours as needed for pain Social History Tobacco Use Types Packs/Day Years Used Date Smoking Tobacco: Never Alcohol Use Standard Drinks/Week Comments Yes 0 (1 standard drink = 0.6 oz pur e alcohol) Sex and Gender Information Value Date Recorded Sex Assigned at Not on file Gender Identity Not on file Sexual Orientation Not on file Last Filed Vital Signs Vital Sign Reading Time Taken Comments Blood Pressure 138/66 03/01/2016 11:24 AM CDT Pulse 103 03/01/2016 11:24 AM CDT RN a gonzales Temperature 36.4 C (97.5 F) 03/01/2016 11:24 AM CDT Respiratory Rate 18 03/01/2016 11:24 AM CDT Oxygen Saturation 98% 03/01/2016 11:24 AM CDT Inhaled Oxygen Concentration - - Weight 109.3 kg (241 lb) 02/19/2016 7:02 AM CDT Height 167.6 cm (5' 6 ) 02/19/2016 7:02 AM CDT Body Mass Index 38.9 02/19/2016 7:02 AM CDT Medical Devices Implanted Type Area Data Management Engineer Device Identifier Shelf Expiration Date Model / Serial / Lot Sylvia Bone [place] Hv Implanted:Qty: 1 on 02/27/2016 by Blaine Roa MD at [facility] Left: Knee [employer] 06/12/2017 [id number] / / [id number] Sylvia Bone [place] Hv Implanted:Qty: 1 on 02/27/2016 by Blaine Roa MD at [facility] [facility] Left: Knee [employer] 09/10/2017 [id number] / / [id number] Compon Fem Ps Auto Painter Narr L Sz 5 Implanted:Qty: 1 on 02/27/2016 by Blaine Roa MD at [facility] [facility] Left: Knee [employer] 08/13/2025 [id number] / / [id number] Ins Tibial Sylvia L Sz 4 Implanted:Qty: 1 on 02/27/2016 by Blaine Roa MD at [facility] [facility] Left: Knee [employer] 11/21/2025 [id number] / / [id number] Ins Lgn Ps Hi-Flex X-Link Sz 3-4 13mm Implanted:Qty: 1 on 02/27/2016 by Blaine Roa MD at [facility] [facility] Left: Knee [employer] 02/11/2025 [id number] / / [id number] Anderson Sylvia Tib Uncem Fem Implanted:Qty: 1 on 02/27/2016 by Blaine Roa MD at [facility] [employer] BILL ONLY SYLVIA TIB UNCEM FEM SNORTHO / / Procedures * CARDIAC RHYTHM STRIP ORDER(Performed 03/04/2016) * HEMOGLOBIN(Performed 02/28/2016) * NEURAXIAL BLOCK(Performed 02/27/2016) * ARTHROPLASTY TOTAL KNEE COOK/NEPHEW(Performed 02/27/2016) Performed for Primary osteoarthritis of left knee * CULTURE MSSA/MRSA(Performed 02/19/2016) Performed for Pre-op testing * BASIC METABOLIC PANEL (CALCIUM TOTAL)(Performed 02/19/2016) Performed for Pre-op testing * CBC W AUTO DIFFERENTIAL(Performed 02/19/2016) Performed for Pre-op testing Results * CARDIAC RHYTHM STRIP ORDER (03/04/2016 10:32 PM CDT) Narrative 03/04/2016 10:32 PM CDT Ordered by an unspecified provider. Scanned Document CARDIAC SERVICES ORD ERABLES * (ABNORMAL) HEMOGLOBIN (02/28/2016 3:21 AM CDT) Hemoglobin 11.3(L) 12.0 - 15.6 gm/dL 02/28/2016 3:47 AM CDT [facility] Blood BLOOD SPECIMEN / Unknown Lab Venipuncture / Unknown 02/28/2016 3:21 AM CDT 02/28/2016 3:27 AM CDT Blaine Roa MD LAB - HEMATOLOGY ORD ERABLES [facility] [address] [place] [address] * NEURAXIAL BLOCK (02/27/2016 11:15 AM CDT) Narrative Shonna Oliveira APRN-CRNA - 02/27/2016 11:15 AM CDT Shonna Oliveira APRN-CRNA 02/27/2016 11:15 AM NEURAXIAL BLOCK Patient Location: holding area Pre Procedure Indication: surgical anesthesia Anticoagulation /Antithrombosis Status Confirmed: Yes Preanesthetic Checklist: patient identified, IV checked, site marked, risks and benefits discussed, surgical consent verified, monitors and equipment checked, pre-op evaluation done, timeout performed, informed consent obtained and questions answered / anesthesia plan accepted Monitors: BP and Pulse Ox Patient Condition: awake Patient Position: sitting Procedure Block Performed: spinal Prep: Betadine Sterile Field: mask, cap/hat, sterile field established and sterile gloves Approach: midline Skin Numbed with: lidocaine 1% Spinal Needle Type: pencil-point Needle Gauge: 25 G Needle Length: 3.5 in Placement Site: L3-4 ANE Block Spinal Start Attempts: multiple attempts by Tee ORTIZ, Horacio PACHECO and Gomez PACHECO due to narrow interspaces. CSF: free flow, aspiration before injection, aspiration during injection and aspiration after injection Local Anesthetic: bupivacaine 0.75% in dextrose 2 Events CSF return injection not painful no paresthesia no other event Degree of Difficulty: marked Position Post Procedure: head of bed elevated 30 degrees Vital signs monitored and stable throughout. See Anesthesia Intraop record for details. Block Start Time: 02/27/2016 11:39 AM Block End Time: 02/27/2016 10:55 AM Block Performed by: Gomez PACHECO Blaine Roa MD GENERAL ANESTHESIA O RDERABLES * CULTURE MSSA/MRSA (02/19/2016 7:12 AM CDT) Culture Negative for MRSA/MSSA RUBEN 02/20/2016 1:16 PM CDT [facility] MICROBIOLOGY Microbiology SPECIMEN FROM NASAL FOSSAE / Unknown Collection / Unknown 02/19/2016 7:12 AM CDT 02/19/2016 7:15 AM CDT Blaine Roa MD LAB - MICROBIOLOGY O RDERABLES [facility] MICROBIOLOGY [address] [place] [address], [facility] [phone] * (ABNORMAL) CBC W AUTO DIFFERENTIAL (02/19/2016 7:11 AM CDT) [facility] Signature WBC 6.5 4.4 - 10.7 x10E9/L 02/19/2016 7:20 AM CDT [facility] WBC Corrected x10E9/L 02/19/2016 7:20 AM CDT [facility] RBC 4.35 3.80 - 5.20 x10E12/L 02/19/2016 7:20 AM CDT [facility] Hemoglobin 13.1 12.0 - 15.6 gm/dL 02/19/2016 7:20 AM CDT [facility] Hematocrit 40.1 35.9 - 45.5 % 02/19/2016 7:20 AM CDT [facility] MCV 92.2 80.7 - 98.3 fl 02/19/2016 7:20 AM CDT [facility] MCH 30.1 26.7 - 34.0 pg 02/19/2016 7:20 AM CDT [facility] MCHC 32.7 30.8 - 35.9 gm/dL 02/19/2016 7:20 AM CDT [facility] Platelet Count 294 153 - 416 x10E9/L 02/19/2016 7:20 AM CDT [facility] RDW-CV 12.2 12.1 - 14.9 % 02/19/2016 7:20 AM CDT [facility] MPV 9.2(L) 9.4 - 12.9 fl 02/19/2016 7:20 AM CDT [facility] Neutrophils % 56.9 44.0 - 73.0 % 02/19/2016 7:20 AM CDT [facility] Lymphocytes % 26.9 20.0 - 43.0 % 02/19/2016 7:20 AM CDT [facility] Monocytes % 11.1 5.0 - 13.0 % 02/19/2016 7:20 AM CDT [facility] Eosinophils % 4.0 0.0 - 6.0 % 02/19/2016 7:20 AM CDT [facility] Basophils % 0.8 0.0 - 2.0 % 02/19/2016 7:20 AM CDT [facility] Immature Granulocytes 0.3 0 - 1 % 02/19/2016 7:20 AM CDT [facility] Neutrophil Absolute 3.70 2.01 - 7.14 x10E9/L 02/19/2016 7:20 AM CDT [facility] Lymphocytes Absolute 1.75 1.07 - 3.94 x10E9/L 02/19/2016 7:20 AM CDT [facility] Monocytes Absolute 0.72 0.26 - 1.07 x10E9/L 02/19/2016 7:20 AM CDT [facility] Eosinophils Absolute 0.26 0 - 0.47 x10E9/L 02/19/2016 7:20 AM CDT [facility] Basophils Absolute 0.05 0 - 0.08 x10E9/L 02/19/2016 7:20 AM CDT [facility] Immature Granulocytes Absolute 0.02 0.00 - 0.06 x10E9/L 02/19/2016 7:20 AM CDT [facility] nRBC Auto 0 /100 WBC 02/19/2016 7:20 AM CDT [facility] Blood BLOOD SPECIMEN / Unknown Venipuncture / Unknown 02/19/2016 7:11 AM CDT 02/19/2016 7:14 AM CDT Blaine Roa MD LAB - HEMATOLOGY ORD ERABLES [facility] [address] [place] [address] * (ABNORMAL) BASIC METABOLIC PANEL (CALCIUM TOTAL) (02/19/2016 7:11 AM CDT) Glucose 94 74 - 106 mg/dL 02/19/2016 7:30 AM CDT [facility] Sodium 138 136 - 145 mmol/L 02/19/2016 7:30 AM CDT [facility] Potassium 4.0 3.5 - 5.1 mmol/L 02/19/2016 7:30 AM CDT [facility] Chloride 104 98 - 107 mmol/L 02/19/2016 7:30 AM CDT [facility] CO2 27 22 - 31 mmol/L 02/19/2016 7:30 AM CDT [facility] Calcium 8.8 8.5 - 10.1 mg/dL 02/19/2016 7:30 AM CDT [facility] Anion Gap 7 5 - 20 mmol/L 02/19/2016 7:30 AM CDT [facility] BUN 26(H) 7 - 21 mg/dL 02/19/2016 7:30 AM CDT [facility] Creatinine 1.00 0.50 - 1.30 mg/dL 02/19/2016 7:30 AM CDT [facility] eGFR by MDRD 56(L) >60 mL/min/1.7 3m2 02/19/2016 7:30 AM CDT [facility] eGFR by MDRD >60 >60 mL/min/1.7 2 02/19/2016 7:30 AM CDT [facility] Blood BLOOD SPECIMEN / Unknown Venipuncture / Unknown 02/19/2016 7:11 AM CDT 02/19/2016 7:14 AM CDT Blaine Roa MD LAB - CHEMISTRY [place] [facility] Organization Address City/State/[facility] Co de Phone Number [facility] [address] [place] [address] Care Teams Watch Engine Operator Relationship Specialty Start Date End Date Andriy Prather MD [address] [place] [phone] PCP - General Internal Medicine 02/16/16 Raquel Evans RN [address] [place] [address] Bricklayer'S Assistant 02/28/16
--- OUTSIDE RECORDS SUMMARY | 2024-08-18 16:32 | XMS_ITS | Clinical Summary ---
Author Organization [facility] Shashi Graham Address [address] [place] [address] Care Team Providers Care Rig Superintendent Name Role Phone Andriy Prather MD Primary Care Provider + Allergies Active Allergy Reactions Criticality Noted Date Comments Codeine Nausea and Vomiting Low 02/19/2016 Medications diclofenac sodium (VOLTAREN) 75 mg Tablet, Delayed Release (E.C.) Take 1 Tablet by mouth 2 times daily. 06/23/2024 Active DULoxetine (CYMBALTA) 60 mg Capsule, Delayed Release(E.C.) Take 1 Capsule by mouth daily. 06/28/2024 Active pravastatin (PRAVACHOL) 80 mg tablet Take 1 Tablet by mouth daily. 06/23/2024 Active losartan (COZAAR) 100 mg tablet Take 1 Tablet by mouth daily. 06/28/2024 Active ezetimibe (ZETIA) 10 mg tablet Take 1 Tablet by mouth daily. 06/23/2024 Active omega 2-qtt-qir-fish oil (Fish OiL) 360-1,200 mg Capsule, Delayed Release(E.C.) Take 1,200 mg by mouth daily. Active calcium carbonate/vitam in D3 (CALCIUM CARBONATE- VIT D ORAL) Take 1,200 mg by mouth daily. Active multivitamin (MULTIPLE VITAMIN ORAL) Take by mouth daily. Active Saccharomyces boulardii (FLORASTOR) 250 mg Capsule Take by mouth. Active docusate sodium (STOOL SOFTENER ORAL) Take 3 Tablets by mouth daily. Active Active Problems No known active problems Encounters Date Type Department Care Team Description 08/18/2024 4:00 PM GRAPHIC SPECIALIST Office Visit [facility] Oncology and Hematology - [place] [address] [place] [phone] Dave Bustamante MD Lymphadenopathy (Primary Dx) from Last 3 Months Family History Medical History Relation Name Comments Colon Cancer Brother No Known Problems Child 1 No Known Problems Child 2 Cancer - Other Father Kidney Cancer Father No Known Problems Mother Relation Name Status Comments Brother Child 1 Alive Child 2 Alive Father Mother Social History Tobacco Use Types Packs/Day Years Used Date Smoking Tobacco: Never Smokeless Tobacco: Never Tobacco Cessation:Counseling Given: Not Answered Alcohol Use Standard Drinks/Week Comments Yes 1 (1 standard drink = 0.6 oz pur e alcohol) Everyday Comments Unknown Sex and Gender Information Value Date Recorded Sex Assigned at Not on file Legal Sex Female 1:33 PM GRAPHIC SPECIALIST Gender Identity Not on file Sexual Orientation Not on file Last Filed Vital Signs Vital Sign Reading Time Taken Comments Blood Pressure - - Pulse 92 08/18/2024 3:24 PM GRAPHIC SPECIALIST Temperature 37.2 C (99 F) 08/18/2024 3:24 PM GRAPHIC SPECIALIST Respiratory Rate 18 08/18/2024 3:24 PM GRAPHIC SPECIALIST Oxygen Saturation 93% 08/18/2024 3:24 PM GRAPHIC SPECIALIST Inhaled Oxygen Concentration - - Weight 134.7 kg (297 lb) 08/18/2024 3:24 PM GRAPHIC SPECIALIST Height 165.1 cm (5' 5 ) 08/18/2024 3:24 PM GRAPHIC SPECIALIST Body Mass Index 49.42 08/18/2024 3:24 PM GRAPHIC SPECIALIST Plan of Treatment Upcoming Encounters Date Type Department Care Team (Late st Contact Info) Description 09/01/2024 4:30 PM GRAPHIC SPECIALIST Telephone Check Up [facility] Oncology and Hematology - [place] [address] [place] [address] Dave Bustamante MD [address] [facility] [address] [address] [place] [address] Health Maintenance Due Date Last Done Comments DTAP/TDAP/TD VACCINES (1 - Tdap) 1969 BREAST CANCER SCREENING 1990 COLORECTAL SCREENING 1995 Colorectal Cancer Screening 1995 FIT-DNA Q 3 years 1995 FIT/FOBT Q 1 year 1995 Flex Sig/CT Colonography Q 5 years 1995 OSTEOPOROSIS SCREENING 2015 ZOSTER VACCINE (2 of 3) 01/07/2017 11/12/2016 PNEUMOCOCCAL VACCINE 65+ YEA RS (2 of 2 - PPSV23) 10/25/2017 10/25/2016 INFLUENZA VACCINE (#1) 2024 4, 04/16/2013, 04/27/2012 Medicare Advantage ([place]) Prev entative Visit/Annual Wellness Visit 07/14/2024 RSV VACCINE (60+ or ) (1 - 1-dose 75+ series) 2025 Insurance [employer] PPO MCR Care Teams Rig Superintendent Relationship Specialty Start Date End Date Andriy Prather MD [address] [place] [address] PCP - General Internal Medicine 08/12/24
--- OUTSIDE RECORDS SUMMARY | 2024-08-18 16:32 | XMS_ITS | Referral Summary ---
Author Organization [facility] [address] Address [address] [place] [address] Care Team Providers Care Aircraft Metalsmith Name Role Phone Andriy Prather MD Primary Care Provider [phone] Allergies No known active allergies Active Problems Problem Noted Date Diagnosed Date Paresis 11/20/2012 Social History Tobacco Use Types Packs/Day Years Used Date Smoking Tobacco: Never Personal Safety Answer Date Recorded Getting School Help Needed Not on file 09/07 Comments Unknown Sex and Gender Information Value Date Recorded Sex Assigned at Not on file Legal Sex Female 7:59 PM PUBLIC SPEAKING COACH Gender Identity Not on file Sexual Orientation Not on file Last Filed Vital Signs Vital Sign Reading Time Taken Comments Blood Pressure 174/95 11/19/2012 12:59 PM CDT Pulse 90 11/19/2012 12:59 PM CDT Temperature - - Respiratory Rate - - Oxygen Saturation - - Inhaled Oxygen Concentration - - Weight 115.8 kg (255 lb 4 oz) 11/19/2012 12:59 P M CDT Height 165.1 cm (5' 5 ) 11/19/2012 12:59 PM CDT Body Mass Index 42.48 11/19/2012 12:59 PM CDT Plan of Treatment Not on file Insurance MEDICARE SOLUTIONS Care Teams Aircraft Metalsmith Relationship Specialty Start Date End Date Andriy Prather MD [address] [place] [address] PCP - General Internal Medicine 09/20/21
--- OUTSIDE RECORDS SUMMARY | 2024-08-18 16:32 | XMS_ITS | Clinical Summary ---
Author Organization [facility] Address [address] [place] [address] Care Team Providers Care Contract Engineer Name Role Phone Andriy Prather MD Primary Care Provider [phone] Raquel Evans RN Unavailable Unavailable Source Comments [facility],non-owned Affiliates and Associated Physician Practices is amultiple site organization consisting of ambulatory clinics and hospital sitesin [place], [place], [place] and [place]. This disclosure is being madepursuant to the Care Everywhere program and may not contain all information available regarding this patient. Last updated 18.[facility] Allergies Active Allergy Reactions Criticality Noted Date Comments Codeine Nausea and/or Vomiting 02/19/2016 Medications * Be aware that medications may not be up to date on this document. Alwaysverify current medications with the patient. Medication Sig Dispensed Refills Start Date End Date Status lisinopril-hydroCHL OROthiazide (PRINZIDE; ZESTORETIC) 20-12.5 MG tablet Take 1 Tab by mouth once daily Active omeprazole (PRILOSEC) 40 MG capsule Take 40 mg by mouth daily before breakfast Active [place]-3 Fatty Acids (FISH OIL) 1200 MG Active Calcium Carbonate-Vit D-Min (CALCIUM 1200 PO) Active INV-DULoxetine/plac ford (CYMBALTA) capsule Take 60 mg by mouth once daily Active Multiple Vitamins-Minerals (WOMENS ONE DAILY PO) Active acetaminophen (TYLENOL) 500 MG tablet Take 2 Tabs by mouth every 6 hours as needed for Fever or Pain Maximum allowable Acetaminophen amount = 4 Grams (4000 mg) / 24 hours. 03/01/2016 Active celecoxib (CELEBREX) 200 MG capsule Take 1 Cap by mouth once daily 30 Cap 1 03/01/2016 Active oxyCODONE-acetamino phen (PERCOCET) 10-325 MG tablet Take 1 tab every 4 to 6 hours as needed for pain 60 Tab 0 03/01/2016 Active Social History Tobacco Use Types Packs/Day Years [...] Pulse 103 03/01/2016 11:24 AM CDT RN zofia gonzales Temperature 36.4 C (97.5 F) 03/01/2016 11:24 AM CDT Respiratory Rate 18 03/01/2016 11:24 AM CDT Oxygen Saturation 98% 03/01/2016 11:24 AM CDT Inhaled Oxygen Concentration - - Weight 109.3 kg (241 lb) 02/19/2016 7:02 AM CDT Height 167.6 cm (5' 6 ) 02/19/2016 7:02 AM CDT Body Mass Index 38.9 02/19/2016 7:02 AM CDT Plan of Treatment Health Maintenance Due Date Last Done Comments BONE DENSITY TESTING 1950 COLOGUARD (AGES 45-75) - COL ON CA SCREENING 1950 COLON MONITORING 1950 COLONOSCOPY - COLON CA SCREENING 1950 CT COLONOGRAPHY - COLON CA SCREENING 1950 Colorectal Cancer Screening 1950 FIT - COLON CA SCREENING 1950 FLEX SIG - COLON CA SCREENING 1950 LIPID TESTING 1950 MAMMOGRAM 1950 HEPATITIS C SCREENING 03/04/1968 DTAP/TDAP/TD VACCINES (1 - Tdap) 1969 PNEUMOCOCCAL VACCINE 50+ (1 of 1 - PCV) 2000 ZOSTER VACCINE (1 of 2) 2000 COVID-19 VACCINE (1 - 2023-2 5 season) 2024 INFLUENZA VACCINE (#1) 2024 DEPRESSION SCREENING 07/14/2024 MEDICARE AWV CALENDAR YEAR 2024 Respiratory Syncytial Virus (RSV) Vaccine Pt: or over 60 yrs (1 - 1-dose 75+ series) 2025 HEPATITIS B VACCINE Aged Out No longe r eligible based on patient's age to complete this topic HIB VACCINE Aged Out No longer eligi ble based on patient's age to complete this topic HPV VACCINE Aged Out No longer eligi ble based on patient's age to complete this topic MENINGOCOCCAL (Group B) VACCINE Aged Out No longer eligible based on patient's age to complete this topic MENINGOCOCCAL VACCINE Aged Out No rigo jocelyne eligible based on patient's age to complete this topic Medical Devices Implanted Type Area Vice President Corporate Communications Device Identifier Shelf Expiration Date Model / Serial / Lot Sylvia Bone [place] Hv Implanted:Qty: 1 on 02/27/2016 by Blaine Roa MD at [facility] Left: Knee [employer] 06/12/2017 [id number] / / [id number] Sylvia Bone [place] Hv Implanted:Qty: 1 on 02/27/2016 by Blaine Roa MD at [facility] Left: Knee [employer] 09/10/2017 [id number] / / [id number] Compon Fem Ps Export Specialist Narr L Sz 5 Implanted:Qty: 1 on 02/27/2016 by Blaine Roa MD at [facility] Left: Knee [employer] 08/13/2025 [id number] / / [id number] Ins Tibial Sylvia L Sz 4 Implanted:Qty: 1 on 02/27/2016 by Blaine Roa MD at [facility] Left: Knee [employer] 11/21/2025 [id number] / / [id number] Ins Lgn Ps Hi-Flex X-Link Sz 3-4 13mm Implanted:Qty: 1 on 02/27/2016 by Blaine Roa MD at [facility] Left: Knee [employer] 02/11/2025 [id number] / / [id number] Anderson Sylvia Tib Uncem Fem Implanted:Qty: 1 on 02/27/2016 by Blaine Roa MD at [facility] [employer] BILL ONLY SYLVIA TIB UNCEM FEM SNORTHO / / Advance Directives Documents on File Type Date Recorded Patient Paramedic Instructor Expl anation Adv Directive/Living Will/POA 03/04/2016 10:31 PM * Full Code (Latest Code Status on File) Date Activated Date Inactivated Comments 02/27/2016 2:42 PM 03/01/2016 2:44 PM Care Teams Contract Engineer Relationship Specialty Start Date End Date Andriy Prather MD [address] [place] [phone] PCP - General Internal Medicine 02/16/16 Raquel Evans RN [address] [place] [address] Field Talent Qualification Specialist 02/28/16
--- OUTSIDE RECORDS SUMMARY | 2024-08-18 16:32 | XMS_ITS | Clinical Summary ---
Author Organization [facility] [address] Address [address] [place] [address] Care Team Providers Care Bicycle Inspector Name Role Phone Andriy Prather MD Primary Care Provider [phone] Allergies No known active allergies Active Problems Problem Noted Date Diagnosed Date Paresis 11/20/2012 Social History Tobacco Use Types Packs/Day Years Used Date Smoking Tobacco: Never Personal Safety Answer Date Recorded Getting School Help Needed Not on file 09/07 Comments Unknown Sex and Gender Information Value Date Recorded Sex Assigned at Not on file Legal Sex Female 7:59 PM OUTPATIENT THERAPIST Gender Identity Not on file Sexual Orientation Not on file Obstetrics History Last Filed Vital Signs Vital Sign Reading [...] 11/19/2012 12:59 PM CDT Plan of Treatment Health Maintenance Due Date Last Done Comments Breast Cancer Screening-Mammogram 1950 Colon Cancer Screening-Colonoscopy 1950 Depression Screening 1950 Fall Risk Assessment 1950 Hepatitis C Screening 1950 Osteoporosis Screening-Bone Density Scan 1950 DTaP/Tdap/Td Vaccine (1 - Tdap) 1961 Hepatitis B Screening 1968 Well Visit 65+ 2015 Zoster Vaccine (2 of 3) 01/13/2017 11/18/2016, 11/12 Pneumococcal vaccine 65+ (2 of 2 - PPSV23 or PCV20) 10/25/2017 10/25/2016 Covid-19 Vaccine (4 - 2023-2 5 season) 2024 04/17/2021, 09/16/2020, 08/25/2020 Influenza Vaccine (#1) 2024 , 02/10/2015, 08/03/2014, Additional history exists Insurance MEDICARE SOLUTIONS [facility] MEDICARE Address: [facility] [id number] [place] [id number] Care Teams Bicycle Inspector Relationship Specialty Start Date End Date Andriy Prather MD [address] [place] [address] PCP - General Internal Medicine 09/20/21
--- OUTSIDE RECORDS SUMMARY | 2024-08-18 16:32 | XMS_ITS | Referral Summary ---
Author Organization [facility] [employer] Address [address] [place] [address] Care Team Providers Care Operator Name Role Phone Andriy Prather MD Primary Care Provider [phone] Raquel Evans RN Unavailable Unavailable Source Comments [facility],non-owned Affiliates and Associated Physician Practices is amultiple site organization consisting of ambulatory clinics and hospital sitesin [place], [place], [place] and [place]. This disclosure is being madepursuant to the Care Everywhere program and may not contain all information available regarding this patient. Last updated 18.[facility] [employer] Allergies Active Allergy Reactions Criticality Noted Date [...] mg by mouth daily before breakfast Active [place]-3 Fatty Acids (FISH OIL) 1200 MG Active [...] Mass Index 38.9 02/19/2016 7:02 AM CDT Functional Status Functional Status Response Date of Assess ment Is person deaf or have serious hearing difficult y? No 02/27/2016 Is person blind or have serious difficulty seein g? No 02/27/2016 Does person have serious dif ficulty walking/climbing stairs? Yes 02/27/2016 Does person have difficulty dressing/bathing? No 02/27/2016 Does person have difficulty doing errands alone? No 02/27/2016 Cognitive Status Response Date of Assessm ent Does person have difficulty concentrating/remembering/making decisions? No 02/27/2016 Plan of Treatment Not on file Medical Devices Implanted Type Area Art Preparator Device Identifier Shelf Expiration Date Model / Serial / Lot Sylvia Bone [place] Hv Implanted:Qty: 1 on 02/27/2016 by Blaine Roa MD at [facility] Left: Knee [employer] Orthopedics 06/12/2017 [id number] / / [id number] Sylvia Bone [place] Hv Implanted:Qty: 1 on 02/27/2016 by Blaine Roa MD at [facility] Left: Knee [employer] Orthopedics 09/10/2017 [id number] / / [id number] Compon Fem Ps Engine Repairer Production Narr L Sz 5 Implanted:Qty: 1 on 02/27/2016 by Blaine Roa MD at [facility] Left: Knee [employer] 08/13/2025 [id number] / / [id number] Ins Tibial Sylvia L Sz 4 Implanted:Qty: 1 on 02/27/2016 by Blaine Roa MD at [facility] Left: Knee [employer] 11/21/2025 [id number] / / [id number] Ins Lgn Ps Hi-Flex X-Link Sz 3-4 13mm Implanted:Qty: 1 on 02/27/2016 by Blaine Roa MD at [facility] Left: Knee [employer] 02/11/2025 [id number] / / [id number] Anderson Sylvia Tib Uncem Fem Implanted:Qty: 1 on 02/27/2016 by Blaine Roa MD at [facility] [employer] BILL ONLY SYLVIA TIB UNCEM FEM SNORTHO / / Advance Directives Documents on File Type Date Recorded Patient Education Reviewer Expl anation Adv Directive/Living Will/POA 03/04/2016 10:31 PM * Full Code (Latest Code Status on File) Date Activated Date Inactivated Comments 02/27/2016 2:42 PM 03/01/2016 2:44 PM Care Teams Operator Relationship Specialty Start Date End Date Andriy Prather MD [address] [place] [address] PCP - General Internal Medicine 02/16/16 Raquel Evans RN [address] [place] [address] Pre K Teacher 02/28/16
--- OUTSIDE RECORDS SUMMARY | 2024-08-18 16:32 | XMS_ITS | Continuity of Care Document ---
Author Organization [facility] Address [address] [facility] [address] [place] [address] Phone Care Team Providers Care Armature Repairer Name Role Phone Blaine Roa MD Unavailable Unavailable Allergies, Adverse Reactions, Alerts Substance Reaction Status Criticality codeine Nausea Active No Information Medications Medication Instructions Dosage Effective Dates (start - stop) Status Comments Celebrex 200 mg capsule Take 1 capsule by mouth daily with food - Active Calcium 500 mg (1,250 mg) + D3 125 unit tablet - Active lisinopril 20 mg-hydrochlorothiazid e 25 mg tablet - Active naproxen 500 mg tablet - Active omeprazole 40 mg capsule,delayed release - Active duloxetine 60 mg capsule,delayed release - Active Procedures Procedure Date POSTOP FOLLOW-UP VISIT POSTOP FOLLOW-UP VISIT OFFICE/OUTPATIENT VISIT NEW Advance Directives Directive Yes / No Effective Date File Name No Information Encounters Encounter Description Practice Location Reason(s) For Visit Diagnoses Date Provider Providers Copied on Encounter [facility] Orthopa[facility], [address] [place] [address], [address], [place] [phone] [facility] No Information 6 Crispin Valladares. [address], [place], [place], [id number] . tel: [phone] [facility] Orthopaedic Surgery, [address] [facility] [address], [place], [address], [place] tel:[phone] [facility] Status post total knee replacement, left 6 Crispin Valladares. [address], [place], [place], [id number] . tel: [phone] [facility] Orthopaedic Surgery, [address] [facility] [address], [place], [address], [place] [phone] [facility] PO LT TKA (chief complaint) Primary osteoarthritis of left kneeStatus post total knee replacement, left Feb- 6 Crispin Valladares. [address], [place], [place], [id number] . tel: [phone] OFFICE/OUTPA TIENT VISIT [facility] Orthopaedic Surgery, [address] [facility] [address], [place], [address], [place] [phone] [facility] Bilat. knee pain (chief complaint) Primary osteoarthritis of left kneePrimary osteoarthritis of right knee Feb- 6 Crispin Valladares. [address], [place], [place], [id number] . tel: [phone] Referring Provider: Andriy Ortiz, [address], [place], [address]. tel:[phone] Family History Family Member Type Diagnosis Age At Onset Mother Problem (finding) rheumatoid arthritis (C ause Of ) 65 Mother Problem (finding) Payers Payer name Insurance type Covered republican ID Ekaterina seymour(s) [facility] Group Medicare Advantage OT [id number] Social History Type Description Quantity Date Captured Comments Alcohol Use Details Unknown Caffeine Use Details Unknown Tobacco Use Status No Information Smoking Status No Information Sex Female Chief Complaint And Reason For Visit No Information Reason For Referral Reason For Referral No Information Plan Of Treatment Date Type Action Status Referral Ordered: RADEX KNE 3 VIEWS LT ordered History Of Present Illness Encounter Date Complaint History Of Prese nt Illness PO LT TKA Bilat. knee pain Functional Status Date Functional Assessmen t No Information Instructions Date Instruction Additional Infor mation increase activity as instructed Related to Status post total knee replacement, left watch for signs of i nfection - increased pain, fever and redness Related to Status post total knee replacement, left activity as tolerated Related to Primary osteoarthritis of right knee apply heating pad or ice as tolerated Related to Primary osteoarthritis of right knee activity as tolerated Related to Primary osteoarthritis of left knee apply heating pad or ice as tolerated Related to Primary osteoarthritis of left knee elevate higher than your heart R elated to Primary osteoarthritis of left knee elevate higher than your heart R elated to Primary osteoarthritis of right knee Assessments Type Assessment Date No Information Patient Care Teams Name Effective Dates (start - stop) Status Members No Information
--- OUTSIDE RECORDS SUMMARY | 2024-08-18 16:32 | XMS_ITS | Encounter Summary ---
Author Organization [facility] [employer] [facility] Address [address] [place] [address] Care Team Providers Care Lining Repairer Name Role Phone Andriy Prather MD Primary Care Provider + Encounter Details Date Type Department Care Team (Late st Contact Info) Description 08/18/2024 4:00 PM INNERSOLE MAKER Office Visit [facility] Oncology and Hematology - [place] [address] [facility] [address] [place] [address] Dave Bustamante MD [address] [place] [address] Lymphadenopathy (Primary Dx) Social History Tobacco Use Types Packs/Day Years Used Date Smoking Tobacco: Never Smokeless Tobacco: Never Tobacco Cessation:Counseling Given: Not Answered Alcohol Use Standard Drinks/Week Comments Yes 1 (1 standard drink = 0.6 oz pur e alcohol) Everyday Comments Unknown Sex and Gender Information Value Date Recorded Sex Assigned at Not on file Legal Sex Female 1:33 PM INNERSOLE MAKER Gender Identity Not on file Sexual Orientation Not on file documented as of this encounter Last Filed Vital Signs Vital Sign Reading Time Taken Comments Blood Pressure - - Pulse 92 08/18/2024 3:24 PM INNERSOLE MAKER Temperature 37.2 C (99 F) 08/18/2024 3:24 PM INNERSOLE MAKER Respiratory Rate 18 08/18/2024 3:24 PM INNERSOLE MAKER Oxygen Saturation 93% 08/18/2024 3:24 PM INNERSOLE MAKER Inhaled Oxygen Concentration - - Weight 134.7 kg (297 lb) 08/18/2024 3:24 PM INNERSOLE MAKER Height 165.1 cm (5' 5 ) 08/18/2024 3:24 PM INNERSOLE MAKER Body Mass Index 49.42 08/18/2024 3:24 PM INNERSOLE MAKER documented in this encounter Plan of Treatment Upcoming Encounters Date Type Department Care Team (Late st Contact Info) Description 09/01/2024 4:30 PM INNERSOLE MAKER Telephone Check Up [facility] Oncology and Hematology - [place] [address] [facility] [address] [place] [address] Dave Bustamante MD [address] [place] [address] Scheduled Orders Name Type Priority Associated Diagnoses Orde r Schedule CBC WITH DIFFERENTIAL Lab Stat Lymphadenopathy Expected: 08/18/2024, Expires: 08/18/2025 C-REACTIVE PROTEIN Lab Routine Lymphadenopathy Expected: 08/18/2024, Expires: 08/18/2025 FLOW CYTOMETRY PANEL Lab Routine Lymphadenopathy Expected: 08/18/2024, Expires: 08/18/2025 SEDIMENTATION RATE Lab Routine Lymphadenopathy Expected: 08/18/2024, Expires: 08/18/2025 LACTATE DEHYDROGENASE Lab Routine Lymphadenopathy Expected: 08/18/2024, Expires: 08/18/2025 COMPREHENSIVE METABOLIC PANEL Lab Stat Lymphadenopathy Expected: 08/18/2024, Expires: 08/18/2025 documented as of this encounter Visit Diagnoses Diagnosis Lymphadenopathy- Primary Enlargement of lymph nodes documented in this encounter Care Teams Lining Repairer Relationship Specialty Start Date End Date Andriy Prather MD [address] [place] [address] PCP - General Internal Medicine 08/12/24 documented as of this encounter
[2024-08-18 17:53] LABS: Basophils Percent Auto 0.5 % (0.2-1.2); Eosinophils Absolute Auto 0.3 K/mm3 (0-0.3); Hematocrit 45.5 % (37.0-47.0); Hemoglobin 14.4 g/dL (12.0-15.0); Immature Granulocyte Absolute 0.06 K/mm3 (0.00-0.031); Immature Granulocyte Percent A 0.8 % (0-0.5); Lymphocytes Absolute Auto 1.72 K/mm3 (0.9-3.2); Lymphocytes Percent Auto 23.6 % (18.3-44.2); Mean Corpuscular HGB Conc 31.6 g/dl (32-36); Mean Corpuscular Hemoglobin 29.9 pg (26-34); Mean Corpuscular Volume 94.6 fl (80-100); Mean Platelet Volume 9.8 fl (7.4-10.4); Monocytes Absolute Auto 0.8 K/mm3 (0.1-0.6); Monocytes Percent Auto 10.3 % (2.6-8.5); Neutrophils Absolute Auto 4.4 K/mm3 (1.3-6.7); Neutrophils Percent Auto 60.8 % (45.5-73.1); Platelet Count Result 236 k/mm3 (150-375); Red Blood Count 4.81 M/mm3 (4.2-5.4); Red Cell Distribution Width 12.3 % (11.5-14.5); White Blood Count 7.3 K/mm3 (4.5-10.0)
[2024-08-18 18:56] LABS: Alanine Aminotransferase 21 U/L (6-35); Albumin Level 4.2 g/dL (3.5-5.1); Alkaline Phosphatase 62 U/L (38-126); Anion Gap 11 mmol/L (4-12); Aspartate Amino Transferase 25 U/L (14-36); Bilirubin,Total 0.6 mg/dL (0.2-1.3); Blood Urea Nitrogen 27 mg/dL (7-17); CRP < 0.5 mg/dL (<1.0); Calcium 9.2 mg/dL (8.4-10.2); Carbon Dioxide 25 mmol/L (22-30); Chloride 104 mmol/L (98-107); Estimated Glomerular Filt Rate > 60; Glucose 100 mg/dL (65-110); Lactate Dehydrogenase 214 U/L (120-246); Potassium 4.7 mmol/L (3.4-5.0); Sodium 140 mmol/L (137-145)
[2024-08-18 19:20] LABS: Erythrocyte Sedimentation Rate 6 mm/hr (0-20)
== END 2024-08-18 16:25 | disposition home or self-care (01) ==
PROVIDERS: PCP Internal Medicine; Visit Provider Internal Medicine Hematology & Oncology
DX: R59.1 Generalized enlarged lymph nodes (principal)
CPT/HCPCS: 36415; 80053; 83615; 85025; 85652; 86140; 88184

== ENCOUNTER 2024-09-15 09:17 | Outpatient (CLI) | payer MEDICARE, SELFPAY ==
--- NOTE | ~2024-09-15 | XR_ITS ---
XR chest 2V Ordering provider: Andriy Prather MD History: 74 years Female with . R06.09 - Other forms of dyspnea . Comparison: September 20, 2021 FINDINGS: MEDIASTINUM: The cardiac silhouette is not enlarged. Slightly congestive jennifer. LUNGS: No infiltrates, effusions or pneumothorax. OTHER: No free air under the diaphragm. Degenerative changes of the spine. IMPRESSION: No acute cardiopulmonary pathology. Reviewed, dictated and finalized at location A. [facility]
--- OUTSIDE RECORDS SUMMARY | 2024-09-15 09:54 | XMS_ITS | Continuity of Care Document ---
Author Organization [facility] Address [address] [facility] [address] [place] [address] Phone Care Team Providers Care Funeral Professional Name Role Phone Blaine Roa MD Unavailable [...] Diagnoses Date Provider Providers Copied on Encounter [facility] Orthopaedic Surgery, [address] [place] [address], [address], [place] [phone] [facility] No Information 6 Crispin Valladares. [address], [place], [place], [id number] . tel: [phone] [facility] Orthopaedic Surgery, [address] [facility] [address], [place], [address], [place] [phone] [facility] Status post total knee replacement, left 6 Crispin Valladares. [address], [place], [place], [id number] . tel: [phone] [facility] Orthopaedic Surgery, [address] [facility] [address], [place], [address], [place] [phone] [facility] PO LT TKA (chief complaint) Primary osteoarthritis of left kneeStatus post total knee replacement, left Feb- 6 Crispin Valladares. [address], [place], [place], [id number] . tel: [phone] OFFICE/OUTPA TIENT VISIT [facility] Orthopaedic Surgery, [address] [facility] [address], [place], [address], [place] [phone] [facility] Bilat. knee pain (chief complaint) Primary osteoarthritis of left kneePrimary osteoarthritis of right knee Feb- 6 Crispin Valladares. [address], [place], [place], [address] . tel: [phone] Referring Provider: Andriy Ortiz, [address], [place], [address]. tel:[phone] Family History Family Member Type Diagnosis Age At Onset Mother Problem (finding) rheumatoid arthritis (C ause Of ) 65 Mother Problem (finding) Payers Payer name Insurance type Covered republican ID Ekaterina seymour(s) [facility] Group Medicare Advantage OT [id number] Social History Type Description Quantity Date Captured [...]
--- OUTSIDE RECORDS SUMMARY | 2024-09-15 09:54 | XMS_ITS | Clinical Summary ---
Author Organization [facility] [employer] Address [address] [place] [address] Care Team Providers Care Near Eastern Archaeology Lecturer Name Role Phone Andriy Prather MD Primary [...] Tablet by mouth daily. 06/23/2024 Active omega 4-cde-gbo-fish oil (Fish OiL) 360-1,200 mg Capsule, Delayed [...] Encounters Date Type Department Care Team Description 09/01/2024 4:30 PM GRAIN UNLOADER Telephone Check Up [facility] Oncology and Hematology - [place] [address] [place] [address] Dave Bustamante MD Lymphadenopathy (Primary Dx) 09/01/2024 External Device Data STL ABSTRACTION Provider, Abstract 08/31/2024 Orders Only [facility] Oncology and Hematology [facility] [address] [place] [address] Dave Bustamante MD 08/31/2024 Abstract [facility] Oncology and Hematology [facility] [address] [place] [address] Dave Bustamante MD 08/24/2024 External Device Data STL ABSTRACTION Provider, Abstract 08/24/2024 External Device Data STL ABSTRACTION Provider, Abstract 08/24/2024 External Device Data STL ABSTRACTION Provider, Abstract 08/18/2024 4:00 PM GRAIN UNLOADER Office Visit [facility] Oncology and [facility] [address] [place] [address] Dave Bustamante MD Lymphadenopathy (Primary Dx) from [...] on file Legal Sex Female 1:33 PM GRAIN UNLOADER Gender Identity Not on file Sexual Orientation Not on file Last Filed Vital Signs Vital Sign Reading Time Taken Comments Blood Pressure - - Pulse 92 08/18/2024 3:24 PM GRAIN UNLOADER Temperature 37.2 C (99 F) 08/18/2024 3:24 PM GRAIN UNLOADER Respiratory Rate 18 08/18/2024 3:24 PM GRAIN UNLOADER Oxygen Saturation 93% 08/18/2024 3:24 PM GRAIN UNLOADER Inhaled Oxygen Concentration - - Weight 134.7 kg (297 lb) 08/18/2024 3:24 PM GRAIN UNLOADER Height 165.1 cm (5' 5 ) 08/18/2024 3:24 PM GRAIN UNLOADER Body Mass Index 49.42 08/18/2024 3:24 PM GRAIN UNLOADER Plan of Treatment Upcoming Encounters Date Type Department Care Team (Late st Contact Info) Description 01/07/2025 11:00 AM CDT Office Visit [facility] Oncology and Hematology - [place] [address] [facility] [address] [place] [address] Dave Bustamante MD [address] [facility] [address] [place] [address] Health Maintenance Due Date Last Done Comments DTAP/TDAP/TD VACCINES (1 - Tdap) 1969 BREAST CANCER SCREENING 1990 COLORECTAL SCREENING 1995 Colorectal Cancer Screening 1995 FIT-DNA Q 3 years 1995 FIT/FOBT Q 1 year 1995 Flex Sig/CT Colonography Q 5 years 1995 RSV VACCINE (60+ or ) (1 - Risk 60-74 years 1-dose series) 2010 OSTEOPOROSIS SCREENING 2015 ZOSTER VACCINE (2 of 3) 01/07/2017 11/12/2016 PNEUMOCOCCAL VACCINE 50+ YEA RS (2 of 2 - PPSV23) 10/25/2017 10/25/2016 INFLUENZA VACCINE (#1) 2024 4, 04/16/2013, 04/27/2012 Procedures Procedure Name Priority Date/Time Associated Diagnosis Comments CBC WITH DIFFERENTIAL Routine 08/18/2024 1:23 PM GRAIN UNLOADER from Last 3 Months Results * CBC WITH DIFFERENTIAL (08/18/2024 1:23 PM GRAIN UNLOADER) Blood us Dave Bustamante MD HEMATOLOGY ORDERABLES Final Res ult from Last 3 Months Insurance [employer] PPO MCR Care Teams Near Eastern Archaeology Lecturer Relationship Specialty Start Date End Date Andriy Prather MD [address] [place] [phone] PCP - General Internal Medicine 08/12/24
--- OUTSIDE RECORDS SUMMARY | 2024-09-15 09:54 | XMS_ITS | Referral Summary ---
Author Organization [facility] [employer] Address [address] [facility] [place] [address] Care Team Providers Care Primary Clinician Name Role Phone Andriy Prather MD Primary Care Provider [phone] Raquel Evans RN Unavailable Unavailable Source Comments [facility],non-owned Affiliates and Associated Physician Practices is amultiple site organization consisting of ambulatory clinics and hospital sitesin [place], [place], [place] and [place]. This disclosure is being madepursuant to the Care Everywhere program and may not contain all information available regarding this patient. Last updated 18.[facility] [employer] Allergies Active Allergy Reactions Criticality Noted Date [...] mg by mouth daily before breakfast Active [place]-3 Fatty Acids (FISH OIL) 1200 MG Active [...] on file Medical Devices Implanted Type Area Swimming Pool Installer And Servicer Device Identifier Shelf Expiration Date Model / Serial / Lot Sylvia Bone [place] Hv Implanted:Qty: 1 on 02/27/2016 by Blaine Roa MD at [facility] Left: Knee [employer] Orth[employer]ics 06/12/2017 [id number] / / [id number] Sylvia Bone [place] Hv Implanted:Qty: 1 on 02/27/2016 by Blaine Roa MD at [facility] Left: Knee [employer] 09/10/2017 [id number] / / [id number] Compon Fem Ps Service Porter Narr L Sz 5 Implanted:Qty: 1 on 02/27/2016 by Blaine Roa MD at [facility] Left: Knee [employer] 08/13/2025 [id number] / / [id number] Ins Tibial Sylvia L Sz 4 Implanted:Qty: 1 on 02/27/2016 by Blaine Roa MD at [facility] Left: Knee [employer] 11/21/2025 [id number] / / [id number] Ins Lgn Ps Hi-Flex X-Link Sz 3-4 13mm Implanted:Qty: 1 on 02/27/2016 by Blaine Roa MD at [facility] Left: Knee [employer] 02/11/2025 [id number] / / [id number] Anderson Sylvia Tib Uncem Fem Implanted:Qty: 1 on 02/27/2016 by Blaine Roa MD at [facility] [employer] BILL ONLY SYLVIA TIB UNCEM FEM SNORTHO / / Advance Directives Documents on File Type Date Recorded Patient Sap Technical Developer Expl anation Adv Directive/Living Will/POA 03/04/2016 10:31 PM * Full Code (Latest Code Status on File) Date Activated Date Inactivated Comments 02/27/2016 2:42 PM 03/01/2016 2:44 PM Care Teams Primary Clinician Relationship Specialty Start Date End Date Andriy Prather MD [address] [place] [address] PCP - General Internal Medicine 02/16/16 Raquel Evans RN [address] [place] [address] Used Car Make Ready Worker 02/28/16
--- OUTSIDE RECORDS SUMMARY | 2024-09-15 09:54 | XMS_ITS | Clinical Summary ---
Author Organization [facility] [employer] Address [address] [facility] [place] [address] Care Team Providers Care Ring Making Machine Operator Name Role Phone Andriy Prather MD Primary Care Provider [phone] Raquel Evans RN Unavailable Unavailable Source Comments [facility],non-owned Affiliates and Associated Physician Practices is amultiple site organization consisting of ambulatory clinics and hospital sitesin [place], [place], [place] and [place]. This disclosure is being madepursuant to the Care Everywhere program and may not contain all information available regarding this patient. Last updated 18.[facility] [employer] Allergies Active Allergy Reactions Criticality Noted Date [...] mg by mouth daily before breakfast Active [place]-3 Fatty Acids (FISH OIL) 1200 MG Active [...] this topic Medical Devices Implanted Type Area Police Lieutenant Precinct Device Identifier Shelf Expiration Date Model / Serial / Lot Sylvia Bone [place] Hv Implanted:Qty: 1 on 02/27/2016 by Blaine Roa MD at [facility] Left: Knee [employer] Orthopedics 06/12/2017 [id number] / / [id number] Sylvia Bone [place] Hv Implanted:Qty: 1 on 02/27/2016 by Blaine Roa MD at [facility] Left: Knee [employer] Orthopedics 09/10/2017 [id number] / / [id number] Compon Fem Ps Certified Orthotist Practice Manager Narr L Sz 5 Implanted:Qty: 1 on 02/27/2016 by Blaine Roa MD at [facility] Left: Knee [employer] 08/13/2025 [id number] / / [id number] Ins Tibial Sylvia L Sz 4 Implanted:Qty: 1 on 02/27/2016 by Blaine Roa MD at [facility] Left: Knee [employer] 11/21/2025 [id number] / / [id number] Ins Lgn Ps Hi-Flex X-Link Sz 3-4 13mm Implanted:Qty: 1 on 02/27/2016 by Blaine Roa MD at [facility] Left: Knee [employer] 02/11/2025 [id number] / / [id number] Anderson Sylvia Tib Uncem Fem Implanted:Qty: 1 on 02/27/2016 by Blaine Roa MD at [facility] [employer] BILL ONLY SYLVIA TIB UNCEM FEM SNORTHO / / Advance Directives Documents on File Type Date Recorded Patient Corporate Librarian Expl anation Adv Directive/Living Will/POA 03/04/2016 10:31 PM * Full Code (Latest Code Status on File) Date Activated Date Inactivated Comments 02/27/2016 2:42 PM 03/01/2016 2:44 PM Care Teams Ring Making Machine Operator Relationship Specialty Start Date End Date Andriy Prather MD [address] [place] [phone] PCP - General Internal Medicine 02/16/16 Raquel Evans RN [address] [place] [address] Credit Risk Manager 02/28/16
--- OUTSIDE RECORDS SUMMARY | 2024-09-15 09:54 | XMS_ITS | Patient Health Summary ---
Author Organization [facility] Address [address] [place] [address] Care Team Providers Care Car Distributor Name Role Phone Andriy Prather MD Primary Care Provider [phone] Raquel Evans RN Unavailable Unavailable Note from [facility],non-owned Affiliates and Associated Physician Practices is amultiple site organization consisting of ambulatory clinics and hospital sitesin [place], [place], [place] and [place]. This disclosure is being madepursuant to the Care Everywhere program and may not contain all information available regarding this patient. Last updated 18.[facility] Allergies * Codeine(Nausea and/or Vomiting) Medications * Be aware that medications may not be up to date on this document. Alwaysverify current medications with the patient. * lisinopril-hydroCHLOROthiazide (PRINZIDE; ZESTORETIC) 20-12.5 MG tablet Take 1 Tab by mouth once daily * omeprazole (PRILOSEC) 40 MG capsule Take 40 mg by mouth daily before breakfast * [place]-3 Fatty Acids (FISH OIL) 1200 MG * [...] AM CDT Medical Devices Implanted Type Area Systems Admin Device Identifier Shelf Expiration Date Model / Serial / Lot Sylvia Bone [place] Hv Implanted:Qty: 1 on 02/27/2016 by Blaine Roa MD at [facility] Left: Knee [employer] 06/12/2017 [id number] / / [id number] Sylvia Bone [place] Hv Implanted:Qty: 1 on 02/27/2016 by Blaine Roa MD at [facility] Left: Knee [employer] 09/10/2017 [id number] / / [id number] Compon Fem Ps Independent Trader Narr L Sz 5 Implanted:Qty: 1 on 02/27/2016 by Blaine Roa MD at [facility] Left: Knee [employer] 08/13/2025 [id number] / / [id number] Ins Tibial Sylvia L Sz 4 Implanted:Qty: 1 on 02/27/2016 by Blaine Roa MD at [facility] Left: Knee [employer] 11/21/2025 [id number] / / [id number] Ins Lgn Ps Hi-Flex X-Link Sz 3-4 13mm Implanted:Qty: 1 on 02/27/2016 by Blaine Roa MD at [facility] Left: Knee [employer] 02/11/2025 [id number] / / [id number] Anderson Sylvia Tib Uncem Fem Implanted:Qty: 1 on 02/27/2016 by Blaine Roa MD at [facility] [employer] BILL ONLY [...] - 15.6 gm/dL 02/28/2016 3:47 AM CDT [facility] Blood BLOOD SPECIMEN / Unknown Lab Venipuncture / Unknown 02/28/2016 3:21 AM CDT 02/28/2016 3:27 AM CDT Blaine Roa MD LAB - HEMATOLOGY ORD ERABLES [facility] [address] [place] [address] * NEURAXIAL BLOCK (02/27/2016 11:15 AM CDT) [...] for MRSA/MSSA RUBEN 02/20/2016 1:16 PM CDT [facility] Microbiology SPECIMEN FROM NASAL FOSSAE / Unknown Collection / Unknown 02/19/2016 7:12 AM CDT 02/19/2016 7:15 AM CDT Blaine Roa MD LAB - MICROBIOLOGY O RDERABLES [facility] [address] [place] [address], [facility] [phone] * (ABNORMAL) CBC W AUTO DIFFERENTIAL (02/19/2016 7:11 AM CDT) [facility] Signature WBC 6.5 4.4 - 10.7 x10E9/L 02/19/2016 7:20 AM CDT [facility] WBC Corrected x10E9/L 02/19/2016 7:20 AM CDT [facility] RBC 4.35 3.80 - 5.20 x10E12/L 02/19/2016 7:20 AM CDT [facility] Hemoglobin 13.1 12.0 - 15.6 gm/dL 02/19/2016 7:20 AM CDT [facility] Hematocrit 40.1 35.9 - 45.5 % 02/19/2016 7:20 AM CDT [facility] MCV 92.2 80.7 - 98.3 fl 02/19/2016 7:20 AM CDT [facility] MCH 30.1 26.7 - 34.0 pg 02/19/2016 7:20 AM CDT [facility] MCHC 32.7 30.8 - 35.9 gm/dL 02/19/2016 7:20 AM CDT [facility] Platelet Count 294 153 - 416 x10E9/L 02/19/2016 7:20 AM CDT [facility] RDW-CV 12.2 12.1 - 14.9 % 02/19/2016 7:20 AM CDT [facility] MPV 9.2(L) 9.4 - 12.9 fl 02/19/2016 7:20 AM CDT [facility] Neutrophils % 56.9 44.0 - 73.0 % 02/19/2016 7:20 AM CDT [facility] Lymphocytes % 26.9 20.0 - 43.0 % 02/19/2016 7:20 AM CDT [facility] Monocytes % 11.1 5.0 - 13.0 % 02/19/2016 7:20 AM CDT [facility] Eosinophils % 4.0 0.0 - 6.0 % 02/19/2016 7:20 AM CDT [facility] Basophils % 0.8 0.0 - 2.0 % 02/19/2016 7:20 AM CDT [facility] Immature Granulocytes 0.3 0 - 1 % 02/19/2016 7:20 AM CDT [facility] Neutrophil Absolute 3.70 2.01 - 7.14 x10E9/L 02/19/2016 7:20 AM CDT [facility] Lymphocytes Absolute 1.75 1.07 - 3.94 x10E9/L 02/19/2016 7:20 AM CDT [facility] Monocytes Absolute 0.72 0.26 - 1.07 x10E9/L 02/19/2016 7:20 AM CDT [facility] Eosinophils Absolute 0.26 0 - 0.47 x10E9/L 02/19/2016 7:20 AM CDT [facility] Basophils Absolute 0.05 0 - 0.08 x10E9/L 02/19/2016 7:20 AM CDT [facility] Immature Granulocytes Absolute 0.02 0.00 - 0.06 x10E9/L 02/19/2016 7:20 AM CDT [facility] nRBC Auto 0 /100 WBC 02/19/2016 7:20 AM CDT [facility] Blood BLOOD SPECIMEN / Unknown Venipuncture / Unknown 02/19/2016 7:11 AM CDT 02/19/2016 7:14 AM CDT Blaine Roa MD LAB - HEMATOLOGY ORD ERABLES [facility] [address] [place] [address] * (ABNORMAL) BASIC METABOLIC PANEL (CALCIUM TOTAL) (02/19/2016 7:11 AM CDT) Glucose 94 74 - 106 mg/dL 02/19/2016 7:30 AM CDT [facility] Sodium 138 136 - 145 mmol/L 02/19/2016 7:30 AM CDT [facility] Potassium 4.0 3.5 - 5.1 mmol/L 02/19/2016 7:30 AM CDT [facility] Chloride 104 98 - 107 mmol/L 02/19/2016 7:30 AM CDT [facility] CO2 27 22 - 31 mmol/L 02/19/2016 7:30 AM CDT [facility] Calcium 8.8 8.5 - 10.1 mg/dL 02/19/2016 7:30 AM CDT [facility] Anion Gap 7 5 - 20 mmol/L 02/19/2016 7:30 AM CDT [facility] BUN 26(H) 7 - 21 mg/dL 02/19/2016 7:30 AM CDT [facility] Creatinine 1.00 0.50 - 1.30 mg/dL 02/19/2016 7:30 AM CDT [facility] eGFR by MDRD 56(L) >60 mL/min/1.7 3m2 02/19/2016 7:30 AM CDT [facility] eGFR by MDRD >60 >60 mL/min/1.7 2 02/19/2016 7:30 AM CDT [facility] Blood BLOOD SPECIMEN / Unknown Venipuncture / Unknown 02/19/2016 7:11 AM CDT 02/19/2016 7:14 AM CDT Blaine Roa MD LAB - CHEMISTRY [facility] [place] [facility] Organization Address City/State/[facility] Co de Phone Number [facility] [address] [place] [address] Care Teams Car Distributor Relationship Specialty Start Date End Date Andriy Prather MD [address] [place] [id number] PCP - General Internal Medicine 02/16/16 Raquel Evans RN [address] [place] [address] [employer] 02/28/16
--- OUTSIDE RECORDS SUMMARY | 2024-09-15 09:54 | XMS_ITS | Referral Summary ---
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
--- OUTSIDE RECORDS SUMMARY | 2024-09-15 09:54 | XMS_ITS | Clinical Summary ---
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 Address: [address] [address] Care Teams Labor And Employment Paralegal Relationship Specialty Start Date End Date Andriy Prather MD [address] [place] [address] PCP - General Internal Medicine 09/20/21
--- NOTE | 2024-09-15 11:37 | WPDPFTINT ---
PFT Procedure Performed PFT Procedure Performed Spirometry with Pre/Post Bronchodilator Plethysmography (Lung Vol) Diffusing Cap (DLCO) Flow Vol Loop PFT Interpretation Lung volumes were measured with the body plethysmography method. This severely diminished expiratory reserve volume is related to obesity. The remaining lung volumes are unremarkable. Spirometry showed diminished expiratory flow rates but a normal FEV 1 to FVC ratio of 79%. Following administration of a bronchodilator there was no significant increase in expiratory flow rates. Lung diffusion capacity is within the normal range at 85% predicted. The flow volume loop is unremarkable. The restrictive pattern on spirometry coupled with a normal TLC indicates nonspecific pattern. Overall, his current pulmonary function testing is consistent with morbid obesity. Clinical correlation advised. Impression: Nonspecific pattern. Lung diffusion capacity within the normal range.
== END 2024-09-15 09:18 | disposition home or self-care (01) ==
PROVIDERS: PCP Internal Medicine; Visit Provider Internal Medicine
DX: R06.09 Other forms of dyspnea (principal); R06.02 Shortness of breath
CPT/HCPCS: 71046; 94060; 94726; 94729